=== PATIENT | male | born 1960 | race Caucasian/White ===

== ENCOUNTER → 2017-10-01 | Outpatient (REF) | payer BC | LOC: M LAB REF 09:26 | DX: C01 Malignant neoplasm of base of tongue (principal) | CPT/HCPCS: 88305 ==

== ENCOUNTER → 2017-10-03 | Outpatient (CLI) | payer BC ==
[~2017-10-03] MED LIST: PROHANCE 279.3MG/ML 15ML VIAL (A9576) As Ordered; PROHANCE 279.3MG/ML 5ML VIAL (A9576) As Ordered
== END ==
LOC: M RAD 08:46
DX: C01 Malignant neoplasm of base of tongue (principal); R93.0 Abnormal findings on diagnostic imaging of skull and head, not elsewhere classified
CPT/HCPCS: A9576

== ENCOUNTER 2017-10-08 08:40 | Day surgery (SDC) | payer BC ==
[2017-10-08] MEDS: LR 1,000 ML IV (09:45)
[2017-10-08] MEDS: LIDOCAINE W/EPINEPHRINE 1% 20ML VIAL As Ordered ×2 (10:36→11:40)
[2017-10-08] MEDS ORDERED: MIDAZOLAM INJ 2 MG/2 ML VIAL (J2250) As Ordered (10:46)
[2017-10-08] MEDS ORDERED: ROCURONIUM BROMIDE 50 MG/5 ML VIAL As Ordered (10:46)
[2017-10-08] MEDS ORDERED: fentaNYL 250 MCG/5 ML INJECTION (J3010) As Ordered (10:46)
[2017-10-08] MEDS ORDERED: LIDOCAINE 2% INJ 100 MG/5 ML SDV (FOR ANES.) As Ordered (10:46)
[2017-10-08] MEDS ORDERED: dexameTHASONE 4 MG/ML 1ML VIAL (J1100) As Ordered (10:46)
[2017-10-08] MEDS ORDERED: ONDANSETRON 4MG/2ML VIAL (J2405) As Ordered (10:46)
[2017-10-08] MEDS ORDERED: PROPOFOL 200 MG/20 ML VIAL As Ordered (10:46)
[2017-10-08] MEDS: dexameTHASONE 4 MG/ML 1ML VIAL (J1100) IV (11:15)
[2017-10-08] MEDS ORDERED: SUCCINYLCHOLINE 100 MG/5 ML SYRINGE (J0330) As Ordered (11:26)
[2017-10-08] MEDS: OXYMETAZOLINE NASAL SPRAY (AFRIN) As Ordered (11:40)
[2017-10-08] MEDS: METHYLENE BLUE 0.5% (5MG/ML) 10 ML AMP (PROVAYBLUE)(Q9968 PER 1MG) As Ordered (11:40)
[2017-10-08] MEDS ORDERED: LR 1,000 ML IV ×2 (12:30)
[2017-10-08] MEDS ORDERED: fentaNYL 100 MCG/2 ML INJECTION (J3010) IV (12:30)
[2017-10-08] MEDS ORDERED: ONDANSETRON 4MG/2ML VIAL (J2405) IV (12:30)
[2017-10-08] MEDS ORDERED: PERCOCET 5MG/325MG TAB As Ordered (12:30)
[2017-10-08] MEDS: PERCOCET 5MG/325MG TAB PO ×2 (12:38→13:07)
== END 2017-10-08 13:55 | disposition home or self-care (01) ==
LOC: M SDC 08:40
DX: J38.1 Polyp of vocal cord and larynx (principal); C02.9 Malignant neoplasm of tongue, unspecified; M54.5 Low back pain; Z88.0 Allergy status to penicillin
CPT/HCPCS: 31535

== ENCOUNTER → 2017-10-16 | Outpatient (CLI) | payer BC | LOC: M ONCR 09:55 | DX: C02.9 Malignant neoplasm of tongue, unspecified (principal) | CPT/HCPCS: G0463 ==

== ENCOUNTER → 2017-10-22 | Outpatient (CLI) | payer BC | LOC: M PLARAD 10:23 | DX: C01 Malignant neoplasm of base of tongue (principal) | CPT/HCPCS: 78815 ==

== ENCOUNTER → 2017-10-24 | Outpatient (CLI) | payer BC ==
[~2017-10-24] MED LIST changes: +ISOVUE-370 76% 100ML VIAL (Q9967) As Ordered; -PROHANCE 279.3MG/ML 15ML VIAL (A9576) As Ordered; -PROHANCE 279.3MG/ML 5ML VIAL (A9576) As Ordered
== END ==
LOC: M RAD 13:36
DX: C01 Malignant neoplasm of base of tongue (principal)
CPT/HCPCS: Q9967

== ENCOUNTER → 2017-11-10 | Outpatient (CLI) | payer BC ==
[~2017-11-10] MED LIST changes: -ISOVUE-370 76% 100ML VIAL (Q9967) As Ordered; +LIDOCAINE 1% MDV 20ML VIAL As Ordered
== END ==
LOC: M RADPRO 08:33
DX: C76.0 Malignant neoplasm of head, face and neck (principal); C01 Malignant neoplasm of base of tongue; Z79.891 Long term (current) use of opiate analgesic; Z79.899 Other long term (current) drug therapy; Z88.0 Allergy status to penicillin
CPT/HCPCS: 38505

== ENCOUNTER 2017-11-12 07:05 | Day surgery (SDC) | payer BC ==
[2017-11-12] MEDS ORDERED: CEFUROXIME SODIUM 750 MG in D5W MINI-BAG PLUS 50 ML IV (07:30)
[2017-11-12] MEDS ORDERED: ROCURONIUM BROMIDE 50 MG/5 ML VIAL As Ordered (07:47)
[2017-11-12] MEDS ORDERED: PROPOFOL 200 MG/20 ML VIAL As Ordered (07:47)
[2017-11-12] MEDS ORDERED: fentaNYL 250 MCG/5 ML INJECTION (J3010) As Ordered (07:47)
[2017-11-12] MEDS ORDERED: LIDOCAINE 2% INJ 100 MG/5 ML SDV (FOR ANES.) As Ordered (07:47)
[2017-11-12] MEDS ORDERED: MIDAZOLAM INJ 2 MG/2 ML VIAL (J2250) As Ordered ×2 (07:48→09:32)
[2017-11-12] MEDS: LR 1,000 ML IV ×3 (08:01→18:40)
[2017-11-12] MEDS: PHENYLEPHRINE 0.5% NASAL SPRAY 15 ML As Ordered ×2 (08:56→09:21)
[2017-11-12] MEDS: dexameTHASONE 4 MG/ML 1ML VIAL (J1100) IV ×2 (09:58→18:41)
[2017-11-12] MEDS: CLINDAMYCIN 600 MG in APPROPRIATE DILUENT 1 EA IV ×3 (09:59→21:47)
[2017-11-12] MEDS: METHYLENE BLUE 0.5% (5MG/ML) 10 ML AMP (PROVAYBLUE)(Q9968 PER 1MG) As Ordered (10:01)
[2017-11-12] MEDS ORDERED: PHENYLephrine HCL 500 MCG/5 ML (100MCG/ML) SYRINGE (J2370) As Ordered (10:09)
[2017-11-12] MEDS: LIDOCAINE W/EPINEPHRINE 1% 20ML VIAL As Ordered ×2 (10:21)
[2017-11-12] MEDS ORDERED: ONDANSETRON 4MG/2ML VIAL (J2405) As Ordered (10:22)
[2017-11-12] MEDS ORDERED: GLYCOPYRROLATE INJ 0.2 MG/ML 2 ML VIAL As Ordered (10:22)
[2017-11-12] MEDS ORDERED: NEOSTIGMINE 10 MG/10 ML VIAL (J2710) As Ordered ×2 (10:22)
[2017-11-12] MEDS ORDERED: hydrALAZINE INJ 20 MG/ML VIAL As Ordered (12:29)
[2017-11-12] MEDS ORDERED: LABETALOL HCL 100 MG/20 ML VIAL As Ordered (12:33)
[2017-11-12] MEDS: LABETALOL HCL 100 MG/20 ML VIAL IV (12:41)
[2017-11-12] MEDS ORDERED: ONDANSETRON 4MG/2ML VIAL (J2405) IV (12:45)
[2017-11-12] MEDS ORDERED: METOCLOPRAMIDE INJ 10MG/2ML VIAL (J2765) IV (12:45)
[2017-11-12] MEDS: fentaNYL 100 MCG/2 ML INJECTION (J3010) IV ×4 (13:05→13:34)
[2017-11-12] MEDS ORDERED: MORPHINE 10 MG/ML 1ML VIAL (J2270) As Ordered (13:28)
[2017-11-12] MEDS: MORPHINE 10 MG/ML 1ML VIAL (J2270) IV ×3 (13:43→14:10)
[2017-11-12] MEDS: CHLORHEXIDINE ORAL RINSE 0.12%/15ML 120ML BOTTLE SSP ×2 (16:00→22:22)
[2017-11-12] MEDS: MORPHINE 4 MG/ML 1ML VIAL/SYRINGE (J2270) IV (17:13)
[2017-11-12] MEDS: ACETAMINOPH W/CODEINE #3 TAB UD PO (18:34)
[2017-11-12] MEDS: AMITRIPTYLINE 50 MG TAB PO (21:41)
[2017-11-12] MEDS: oxyCODONE 20 MG CR TAB PO (21:42)
[2017-11-13] MEDS: dexameTHASONE 4 MG/ML 1ML VIAL (J1100) IV ×2 (02:42→10:30)
[2017-11-13] MEDS: LR 1,000 ML IV (03:00)
[2017-11-13] MEDS: CLINDAMYCIN 600 MG in APPROPRIATE DILUENT 1 EA IV ×2 (05:00→10:29)
[2017-11-13] MEDS: CHLORHEXIDINE ORAL RINSE 0.12%/15ML 120ML BOTTLE SSP (08:04)
[2017-11-13] MEDS: OMEPRAZOLE 20 MG CAP PO (08:05)
[2017-11-13] MEDS: oxyCODONE 20 MG CR TAB PO (08:05)
[2017-11-13] MEDS: oxyCODONE 5MG TAB PO ×2 (10:29→14:45)
== END 2017-11-13 14:51 | disposition home or self-care (01) ==
LOC: M SDC 07:05 → M PCU 17:55
DX: C02.3 Malignant neoplasm of anterior two-thirds of tongue, part unspecified (principal); E66.9 Obesity, unspecified; Z68.37 Body mass index [BMI] 37.0-37.9, adult; F32.9 Major depressive disorder, single episode, unspecified; G89.29 Other chronic pain; Z88.0 Allergy status to penicillin
CPT/HCPCS: 41112

== ENCOUNTER → 2017-11-19 | Outpatient (CLI) | payer BC | LOC: M ONCR 10:41 | DX: C02.1 Malignant neoplasm of border of tongue (principal) | CPT/HCPCS: G0463 ==

== ENCOUNTER 2017-12-04 09:45 | Day surgery (SDC) | payer BC ==
[2017-12-04] MEDS ORDERED: MIDAZOLAM INJ 2 MG/2 ML VIAL (J2250) As Ordered (10:08)
[2017-12-04] MEDS ORDERED: fentaNYL 100 MCG/2 ML INJECTION (J3010) As Ordered ×2 (10:08→15:03)
[2017-12-04] MEDS ORDERED: ROCURONIUM BROMIDE 50 MG/5 ML VIAL As Ordered (10:10)
[2017-12-04] MEDS ORDERED: PROPOFOL 200 MG/20 ML VIAL As Ordered (10:10)
[2017-12-04] MEDS ORDERED: LIDOCAINE 2% INJ 100 MG/5 ML SDV (FOR ANES.) As Ordered (10:11)
[2017-12-04] MEDS: LR 1,000 ML IV ×3 (10:55→19:08)
[2017-12-04 11:09] LABS: BEDSIDE GLUCOSE 112 MG/DL (70-105)
[2017-12-04] MEDS ORDERED: CLINDAMYCIN 600 MG/50 ML PREMIX BAG As Ordered (11:37)
[2017-12-04] MEDS ORDERED: dexameTHASONE 4 MG/ML 1ML VIAL (J1100) As Ordered (11:38)
[2017-12-04] MEDS: LIDOCAINE W/EPINEPHRINE 1% 20ML VIAL As Ordered (12:01)
[2017-12-04] MEDS: dexameTHASONE 4 MG/ML 1ML VIAL (J1100) IV ×2 (12:15→20:40)
[2017-12-04] MEDS: CLINDAMYCIN 600 MG in APPROPRIATE DILUENT 1 EA IV ×2 (12:36→19:08)
[2017-12-04] MEDS ORDERED: ONDANSETRON 4MG/2ML VIAL (J2405) As Ordered (16:15)
[2017-12-04] MEDS: BACITRACIN OINT 30GM As Ordered (16:52)
[2017-12-04 17:37] LABS: BEDSIDE GLUCOSE 164 MG/DL (70-105)
[2017-12-04] MEDS ORDERED: PERCOCET 5MG/325MG TAB PO (17:45)
[2017-12-04] MEDS ORDERED: fentaNYL 100 MCG/2 ML INJECTION (J3010) IV (17:45)
[2017-12-04] MEDS ORDERED: MORPHINE 10 MG/ML 1ML VIAL (J2270) IV (17:45)
[2017-12-04] MEDS ORDERED: ONDANSETRON 4MG/2ML VIAL (J2405) IV ×2 (17:45→18:00)
[2017-12-04] MEDS ORDERED: oxyCODONE 5MG TAB PO (18:00)
[2017-12-04] MEDS ORDERED: MORPHINE 4 MG/ML 1ML VIAL/SYRINGE (J2270) IV (18:00)
[2017-12-04] MEDS ORDERED: oxyCODONE 20 MG CR TAB PO (18:00)
[2017-12-04] MEDS: oxyCODONE 20 MG CR TAB PO (20:40)
[2017-12-04] MEDS: BACITRACIN OINT 30GM TOP (20:59)
[2017-12-04] MEDS: AMITRIPTYLINE 50 MG TAB PO (21:00)
[2017-12-05] MEDS: CLINDAMYCIN 600 MG in APPROPRIATE DILUENT 1 EA IV ×2 (00:17→05:42)
[2017-12-05] MEDS: LR 1,000 ML IV (03:56)
[2017-12-05] MEDS: dexameTHASONE 4 MG/ML 1ML VIAL (J1100) IV (03:56)
[2017-12-05] MEDS: BACITRACIN OINT 30GM TOP (08:45)
[2017-12-05] MEDS: OMEPRAZOLE 20 MG CAP PO (08:45)
[2017-12-05] MEDS: oxyCODONE 20 MG CR TAB PO (08:46)
[2017-12-05 14:40] LABS: iSTAT CA++ 4.9 MG/DL (4.5-5.3)
== END 2017-12-05 11:27 | disposition home or self-care (01) ==
LOC: M SDC 09:45 → M ICU 18:28
DX: C02.9 Malignant neoplasm of tongue, unspecified (principal); C77.0 Secondary and unspecified malignant neoplasm of lymph nodes of head, face and neck; F32.9 Major depressive disorder, single episode, unspecified; E11.9 Type 2 diabetes mellitus without complications; M51.9 Unspecified thoracic, thoracolumbar and lumbosacral intervertebral disc disorder; G89.29 Other chronic pain; Z88.0 Allergy status to penicillin; Z79.899 Other long term (current) drug therapy; Z79.84 Long term (current) use of oral hypoglycemic drugs
CPT/HCPCS: 38724

== ENCOUNTER 2017-12-29 13:53 | Outpatient (RCR) | payer BC ==
[2017-12-29 15:02] LABS: HEMATOCRIT 39.5 % (42.0-52.0); HEMOGLOBIN 13.5 g/dl (13.5-17.5); MEAN CORPUSCULAR HEMOGLOBIN 29.5 pg (27.0-33.0); MEAN CORPUSCULAR HGB CONC 34.2 g/dl (32.0-36.5); MEAN CORPUSCULAR VOLUME 86.2 fl (80.0-96.0); PLATELET COUNT, AUTOMATED 313 10^3/uL (150-450); RED BLOOD COUNT 4.58 10^6/uL (4.30-6.10); WHITE BLOOD COUNT 6.2 10^3/uL (4.0-10.0)
== END 2018-01-20 ==
LOC: M ONCR 13:53 → M RAD 01-02 14:00
DX: Z51.89 Encounter for other specified aftercare (principal); C02.1 Malignant neoplasm of border of tongue
CPT/HCPCS: 77334

== ENCOUNTER 2018-01-13 14:07 | Outpatient (RCR) | payer BC | END 2018-01-20 | LOC: M ONCR 14:07 | DX: C02.1 Malignant neoplasm of border of tongue (principal) | CPT/HCPCS: 77300 ==

== ENCOUNTER 2018-01-21 10:11 | Outpatient (RCR) | payer BC | END 2018-02-20 | LOC: M ONCR 10:11 | DX: C02.1 Malignant neoplasm of border of tongue (principal) | CPT/HCPCS: 77336 ==

== ENCOUNTER 2018-02-24 08:38 | Outpatient (RCR) | payer BC | END 2018-03-22 | LOC: M ONCR 08:38 | DX: C02.1 Malignant neoplasm of border of tongue (principal) | CPT/HCPCS: 77300 ==

== ENCOUNTER → 2018-04-08 | Outpatient (CLI) | payer BC ==
[~2018-04-08] MED LIST changes: +AMIT100TA PO; +BACIPOW8 XX; +CLEO300C2 PO; +CLIN150C14 PO; +LIDO1SOL7 PO; -LIDOCAINE 1% MDV 20ML VIAL As Ordered; +METF500T4 PO; +NYST50SS SS; +OMEP10CASR PO; +OXYC-517 PO; +OXYC20TA40; +PERI12LIQ SSP; +SILV40CR EXT; +chlorhexidine SSP
--- NOTE | 2018-04-09 15:10 | RADONC ---
RADIATION ONCOLOGY FOLLOWUP NOTE DATE: 04/08/2018 CHART NUMBER: [id number] DIAGNOSIS: Oral tongue cancer. STAGE: Stage III, T2N1M0. ECOG PERFORMANCE STATUS: 0. FOLLOWUP NOTE: Mr. 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 The patient presents today reporting that generally he is doing well. He is able to eat and still does not have a feeding tube. The patient's review of systems is noncontributory except for two unhealed skin areas over the left shoulder. Denies nausea, vomiting, fevers, chills, night sweats, diplopia, headaches, anxiety or depression, anorexia, weight loss, visual disturbances, chest pain, urinary or bowel difficulties, bone pain, or neurological problems. PHYSICAL EXAMINATION The patient is a well-developed, well-nourished white male in no acute distress. HEENT: Exam is normocephalic, atraumatic. Extraocular movements are intact. Examination of the patient's oral cavity does not reveal any evidence of recurrent disease. There is no palpable preauricular, cervical, supraclavicular, infraclavicular or axillary lymphadenopathy present. His lungs are clear to auscultation and percussion. They are two small unhealed areas present still over the patient's left neck. ASSESSMENT: 1. The patient is clinically doing well at this point. He is being seen by Dr. Garcia every 4 weeks for routine followup. In light of this, I have set up a followup in our office in six months' time. cc: MD Ez Bull MD
== END ==
LOC: M ONCR 13:25
PROVIDERS: ATTEND Radiology Radiation Oncology
DX: C02.1 Malignant neoplasm of border of tongue (principal)

== ENCOUNTER → 2018-05-19 | Outpatient (CLI) | payer BC | LOC: M PLARAD 12:41 | DX: C02.9 Malignant neoplasm of tongue, unspecified (principal) | CPT/HCPCS: 78815 ==

== ENCOUNTER → 2018-06-09 | Outpatient (CLI) | payer BC ==
[~2018-06-09] MED LIST changes: +LIDOCAINE 1% MDV 20ML VIAL As Ordered ONE
--- NOTE | 2018-06-09 17:18 | REP ---
ULTRASOUND-GUIDED LEFT CERVICAL LYMPH NODE BIOPSY The procedure was performed under the direct supervision of Dr. Rangel. The risks and benefits of the procedure were explained to the patient and informed consent was obtained. The left cervical lymph node was localized using ultrasound guidance. The skin was prepped and draped in a sterile fashion. 1% lidocaine was used as a local anesthetic. Using ultrasound guidance six fine-needle aspirations were obtained using 25 gauge needles. All samples were sent to lab for analysis. The patient tolerated the procedure well and there were no immediate complications. After the appropriate amount of monitored convalescence the patient was discharged from the department. Reviewed by LEN Wynne 06/09/2018 04:45 P Electronically Signed by Kobe Rangel MD 06/09/2018 05:08 P
== END ==
LOC: M RADPRO 12:57
PROVIDERS: ATTEND Otolaryngology
DX: C01 Malignant neoplasm of base of tongue (principal); C77.0 Secondary and unspecified malignant neoplasm of lymph nodes of head, face and neck; Z79.84 Long term (current) use of oral hypoglycemic drugs; Z79.899 Other long term (current) drug therapy; Z88.0 Allergy status to penicillin

== ENCOUNTER → 2018-07-16 | Outpatient (CLI) | payer BC ==
[~2018-07-16] MED LIST changes: +DULO1CAP2 PO; +FLUC10TA PO; +GABA-843 PO; +ISOVUE-370 76% 100ML VIAL (Q9967) As Ordered ONE; -LIDOCAINE 1% MDV 20ML VIAL As Ordered ONE; +METF-723 PO
--- NOTE | 2018-07-16 22:37 | REP ---
Clinical: Recurrent squamous cell cancer of the tongue. Technique: Axial contrast enhanced images from the thoracic inlet to the upper abdomen with coronal and sagittal re-formations using 100 ml Isovue 370 intravenous contrast material. Comparison: None. Findings: Mild scattered bilateral fibroatelectatic changes are suggested including a small area of focal scarring in the subpleural lateral segment right middle lobe (images 56-59). A single 3 mm noncalcified nodule is identified in the posterior left apex (image 27). No further consolidation, significant nodule or mass lesion appreciated. No pleural effusion. No pneumothorax. No obvious axillary, hilar, or mediastinal adenopathy. Mediastinum demonstrates normal thoracic aorta and pulmonary vasculature. Atherosclerotic changes to the coronary arteries noted without cardiomegaly or pericardial effusion. Musculoskeletal structures without focal osseous abnormality. Impression: 1. A single 3 mm noncalcified nodules identified in the posterior left apex which is otherwise nonspecific. Three to 6 month follow-up examination may be warranted. 2. Minimal scattered scarring and fibroatelectatic changes without further acute mediastinal or pleuroparenchymal process appreciated. Electronically Signed by Filiberto Haddad MD 07/16/2018 10:29 P
--- NOTE | 2018-07-17 09:06 | REP ---
CT NECK WITH CONTRAST: HISTORY: Squamous cell carcinoma of the tongue. CONTRAST: Isovue 370, 100 mL. COMPARISON: 10/24/2017 An ill-defined mass is present in the left tongue base. The mass is increased in size. There is superior extension into the left tonsil. There is posterior extension into the left lateral wall of the oropharynx and inferior extension into the anterior and left lateral wall of the hypopharynx. There is effacement of the left vallecula with mild mass effect on the hypopharynx. A soft tissue mass is present posterior to and contiguous with the left parotid gland. There is inferior extension in the left lateral neck in the left carotid space and posterior triangle with encasement of the left sternocleidomastoid levator scapulae, platysma and strap muscles. There is anterior extension into the left submandibular space with partial incasement of the left submandibular gland. There is encasement of the distal left common carotid artery and the proximal left internal and external carotid arteries. The nasopharynx, larynx and subglottic trachea are normal in appearance. There is thickening of the epiglottis and aryepiglottic folds. Increased density is present in the retropharyngeal space. Straightening is present in the anterior subcutaneous tissues. These findings are consistent with post radiation change. A lymph node mass 2.4 cm in width is present in the left subclavicular area at the level of the thyroid gland. Atherosclerotic calcification is present at the carotid bifurcations. Degenerative change is present in the cervical spine. The lung apices are clear. The visualized sinuses are clear. IMPRESSION: 1. There is an ill-defined soft tissue mass in the left tongue base that is increased in size compared to the previous study. There is mild mass effect o the hypopharynx. 2. There is a large left subcutaneous soft tissue mass in the left carotid space and posterior triangle extending from the level of the parotid gland to the thyroid gland with encasement of left-side musculature as described above. Electronically Signed by Van Chiang MD 07/17/2018 09:17 A
== END ==
LOC: M RAD 17:11
PROVIDERS: ATTEND Internal Medicine Medical Oncology
DX: C01 Malignant neoplasm of base of tongue (principal); I65.23 Occlusion and stenosis of bilateral carotid arteries; R22.1 Localized swelling, mass and lump, neck
CPT/HCPCS: 70491; 71260; Q9967

== ENCOUNTER → 2018-07-28 | Outpatient (CLI) | payer BC ==
[~2018-07-28] MED LIST changes: -ISOVUE-370 76% 100ML VIAL (Q9967) As Ordered ONE; +ONDA8TAB7 PO; +PROC10TA4 PO
--- NOTE | 2018-07-29 01:49 | REP ---
Clinical: Preoperative assessment . Comparison: 11/12/2017 . Technique: PA and lateral. Findings: The mediastinum and cardiac silhouette are normal. The lung ward are clear and without acute consolidation, effusion, or pneumothorax. The skeletal structures are intact and normal. Impression: 1. No acute cardiopulmonary process. Electronically Signed by Filiberto Haddad MD 07/29/2018 01:41 A
== END ==
LOC: M SMT 10:08
PROVIDERS: ATTEND Thoracic Surgery (Cardiothoracic Vascular Surgery)
DX: Z01.818 Encounter for other preprocedural examination (principal)

== ENCOUNTER 2018-07-29 07:37 | Day surgery (SDC) | payer BC ==
[~2018-07-29] VITALS: Ht 165.1 cm; Wt 74.8 kg
[~2018-07-29 07:37] MED LIST changes: +LIDOCAINE 1% MDV 20ML VIAL SQ PRN; +LIDOCAINE 2% INJ 100 MG/5 ML SDV (FOR ANES.) As Ordered ONE; +MIDAZOLAM INJ 2 MG/2 ML VIAL (J2250) As Ordered ONE; -ONDA8TAB7 PO; +ONDANSETRON 4MG/2ML VIAL (J2405) As Ordered ONE; -PROC10TA4 PO; +PROPOFOL 200 MG/20 ML VIAL As Ordered ONE; +fentaNYL 100 MCG/2 ML INJECTION (J3010) As Ordered ONE
[2018-07-29] MEDS: LR 1,000 ML IV ONE (07:45)
[2018-07-29] MEDS: VANCOMYCIN HCL 1,000 MG, VIAL MATE ADAPTER 1 EACH in D5W 250 ML IV ONE (08:36)
[2018-07-29] MEDS: LIDOCAINE 1% SDV INJ 30 ML VIAL As Ordered ONE ×2 (09:16→10:00)
[2018-07-29] MEDS: BUPIVACAINE HCL 0.25% 30 ML VIAL As Ordered ONE (09:16)
[2018-07-29] MEDS: MUPIROCIN 2% OINT 22 GM TUBE TOP ONE (09:50)
[2018-07-29] MEDS: HEPARIN SOD (PORCINE) 5000 UNITS/ML VIAL As Ordered ONE (10:00)
[2018-07-29] MEDS: LIDOCAINE 2% MDV 20 ML VIAL As Ordered ONE (10:00)
[2018-07-29] MEDS ORDERED: LABETALOL HCL 100 MG/20 ML VIAL As Ordered ONE (10:01)
[2018-07-29] MEDS ORDERED: PROPOFOL 200 MG/20 ML VIAL As Ordered ONE (10:04)
[2018-07-29] MEDS ORDERED: GLYCOPYRROLATE INJ 0.2 MG/ML 2 ML VIAL As Ordered ONE (10:11)
[2018-07-29] MEDS: BUPIVACAINE LIPOSOME/PF 1.3% 20ML VIAL (13.3MG/ML)(EXPAREL)(C9290 PER1MG) As Ordered ONE (10:22)
--- NOTE | 2018-07-29 11:12 | REP ---
Limited chest x-ray: Two views. History: [id number] placement. 12 seconds of fluoroscopy time is reported. Findings: A sequence of two last image hold fluoroscopically obtained spot radiographs of the chest document left subclavian Vihiez-I-Htck position. Electronically Signed by Kobe Rangel MD 07/29/2018 06:51 P
[2018-07-29 11:40] VITALS: BP 124/69
--- NOTE | 2018-07-30 03:48 | REP ---
Clinical: Port placement . Comparison: 07/28/2018 . Findings: [id number]-[id number] overlies the left upper chest wall with catheter tip in the right atrium. The mediastinum and cardiac silhouette are stable and within normal limits for portable technique. The lung ward are clear without acute consolidation, effusion, or pneumothorax. Skeletal structures are intact. Impression: No acute cardiopulmonary process appreciated. Electronically Signed by Filiberto Haddad MD 07/30/2018 03:39 A
--- NOTE | 2018-07-30 08:32 | RO ---
DATE OF PROCEDURE: 07/29/2018 PROCEDURE DIAGNOSIS: Head and neck cancer and need for chemotherapy and vascular access. POSTPROCEDURE DIAGNOSIS: Head and neck cancer and need for chemotherapy and vascular access. PROCEDURE: Placement of a left subclavian vein PowerPort for fluoroscopic control. SURGEON: Geovanni Stout MD LEAD PASTOR: ANESTHESIA: FINDINGS: All contours were smooth and the catheter was placed be entering the superior vena cava (SVC). DESCRIPTION OF PROCEDURE: Under satisfactory moderate sedation, patient was prepped and draped in usual sterile fashion. Subclavian fossa was infiltrated with 1% lidocaine and the subclavian vein was found on the first pass. Wire was placed without difficulty and its position confirmed with fluoroscopy. An incision approximately 2 cm below the wire insertion was made after infiltrating with Exparel. A subcutaneous pocket was created by use of both electrocautery and blunt dissection. Hemostasis was achieved by use of electrocautery. The tract was incised and dilated, and a Peel-Away introducer placed. The catheter was placed low numbers down into the right atrium. A tunnel was created between the catheter site and the port site and the catheter pulled through under fluoroscopic control to the above position. Catheter was cut to an appropriate length. Collar was placed and Infusaport connected to the catheter. The port was then secured to the chest wall with two #2-0 silk sutures. The port was flushed with heparinized saline and then flushed again with a final concentration of heparin of 100 units/mL. Port aspirated and flushed well. Final pictures were taken to ensure good placement and all contours were smooth. The subcutaneous tissue was closed with running #3-0 Vicryl suture, and the skin was closed with running #4-0 Monocryl subcuticular suture. Patient tolerated procedure well, and left the operating room in satisfactory condition for the recovery room.
== END 2018-07-29 11:50 | disposition home or self-care (01) ==
LOC: M SDC 07:37
PROVIDERS: ATTEND Thoracic Surgery (Cardiothoracic Vascular Surgery)
DX: C01 Malignant neoplasm of base of tongue (principal); C77.0 Secondary and unspecified malignant neoplasm of lymph nodes of head, face and neck; B37.0 Candidal stomatitis; R13.10 Dysphagia, unspecified; E11.9 Type 2 diabetes mellitus without complications; M54.9 Dorsalgia, unspecified; J38.1 Polyp of vocal cord and larynx; Z88.0 Allergy status to penicillin; Z79.899 Other long term (current) drug therapy; Z79.84 Long term (current) use of oral hypoglycemic drugs
CPT/HCPCS: 36561; 71045; 76000; C1788; C9290; J2250; J2405; J3010; J3370

== ENCOUNTER → 2018-08-11 | Outpatient (CLI) | payer BC ==
[~2018-08-11] MED LIST changes: -LIDOCAINE 1% MDV 20ML VIAL SQ PRN; -LIDOCAINE 2% INJ 100 MG/5 ML SDV (FOR ANES.) As Ordered ONE; -MIDAZOLAM INJ 2 MG/2 ML VIAL (J2250) As Ordered ONE; +ONDA8TAB7 PO; -ONDANSETRON 4MG/2ML VIAL (J2405) As Ordered ONE; +PROC10TA4 PO; -PROPOFOL 200 MG/20 ML VIAL As Ordered ONE; -fentaNYL 100 MCG/2 ML INJECTION (J3010) As Ordered ONE
--- NOTE | 2018-08-12 04:14 | REP ---
Clinical: COPD . Comparison: 07/28/2018 . Technique: PA and lateral. Findings: The mediastinum and cardiac silhouette are normal. Vduqzj-L-Fwek identified with tip in the SVC. The lung ward demonstrate chronic interstitial changes without acute consolidation, effusion, or pneumothorax. The skeletal structures are intact and normal. Impression: 1. No acute cardiopulmonary process. Electronically Signed by Filiberto Haddad MD 08/12/2018 04:07 A
== END ==
LOC: M SMT 11:06
PROVIDERS: ATTEND Thoracic Surgery (Cardiothoracic Vascular Surgery)
DX: Z01.818 Encounter for other preprocedural examination (principal); J44.9 Chronic obstructive pulmonary disease, unspecified

== ENCOUNTER → 2018-08-28 | Outpatient (CLI) | payer BC ==
[~2018-08-28] MED LIST changes: +DULO1CAP3 PO; +FENT10PA TOP; +FENT12PA TOP; +ISOVUE-370 76% 100ML VIAL (Q9967) As Ordered ONE; +LEVA250T13 PO; +OXYC10TA12 PO
--- NOTE | 2018-08-28 15:02 | REP ---
Soft-tissue neck CT study with IV contrast: History: Recurrent squamous cell carcinoma of the neck. CT contrast dose: 75 mL of intravenous Isovue 370. Comparison CT study is from July 16, 2018. CT findings: There is heterogeneous enhancing fullness along the left posterior tongue. This is somewhat ill-defined but appears to measure up to 2.5 cm. There is heterogeneous enhancing and confluent abnormal soft tissue in the left neck deep to the sternocleidomastoid muscle. This appears more prominent than on July 16, 2018. Chronic leonardo mass deep to the sternocleidomastoid muscle at the level of the mandibular angle measuring 2.2 cm in diameter. This is more prominent than previously. Posterolateral to the left thyroid gland, there is a similar low density peripherally enhancing lesion which measures 2.6 cm in greatest transverse dimension, previously 2.4 cm. Its AP dimension is 2.2 cm today, previously 2.0 cm. There are a few normal-sized stable lymph nodes in the right neck unchanged. No bony destructive lesion is appreciated. There is a polypoid filling defect along the anterior wall of the trachea today as a new finding. This could be mucoid material although I cannot exclude a neoplastic tracheal polyp. It measures 8 mm. A small stable left thyroid nodule. A left subclavian Jeavqg-D-Aocq catheter is seen. Impression: There is evidence of progressive involvement of the soft tissues of the left neck and the left posterior tongue. Possible 7 mm tracheal polyp versus mucoid material. Electronically Signed by Kobe Rangel MD 08/28/2018 06:49 P
== END ==
LOC: M RAD 13:21
PROVIDERS: ATTEND Internal Medicine Medical Oncology
DX: M54.2 Cervicalgia (principal); C76.0 Malignant neoplasm of head, face and neck
CPT/HCPCS: 70491; Q9967

== ENCOUNTER → 2018-08-31 | Outpatient (CLI) | payer BC ==
[~2018-08-31] MED LIST changes: +EMLA CREAM 5GM (LIDOCAINE/PRILOCAINE) As Ordered ONE
--- NOTE | 2018-08-31 16:09 | REP ---
CT Head without and with contrast HISTORY: Syncope CONTRAST: Isovue 370 75 ml COMPARISON: None Areas of decreased attenuation are present in the basal ganglia. These represent old lacunar infarctions. There is no intraparenchymal hemorrhage, acute infarct, mass or midline shift. There is no abnormal enhancement. The ventricular system is normal in appearance. There is no extra cerebral collection. Mucosal thickening is present in the left ethmoid sinus. Impression: Old bilateral basal ganglia lacunar infarctions. Electronically Signed by aVn Chiang MD 08/31/2018 04:01 P
== END ==
LOC: M RAD 15:07
PROVIDERS: ATTEND Nurse Practitioner Family
DX: R55 Syncope and collapse (principal); Z85.810 Personal history of malignant neoplasm of tongue
CPT/HCPCS: 70470; Q9967

== ENCOUNTER → 2018-09-04 | Outpatient (CLI) | payer BC ==
[~2018-09-04] MED LIST changes: -EMLA CREAM 5GM (LIDOCAINE/PRILOCAINE) As Ordered ONE; -ISOVUE-370 76% 100ML VIAL (Q9967) As Ordered ONE; +ISOVUE-370 76% 125ML VIAL (Q9967 PER ML) As Ordered ONE
--- NOTE | 2018-09-04 09:31 | REP ---
CT NECK WITH CONTRAST: HISTORY: Oropharyngeal carcinoma. CONTRAST: Isovue-370, 75 mL. COMPARISON: 08/28/2018 An ill-defined enhancing mass is present in the left tongue base. There is minimal mass effect on the oropharynx. This appears unchanged compared to the previous study. An enlarged lymph node mass 2.2 cm in width is present in the left posterior triangle at the level of the level of the bal and hypopharynx. This appears unchanged compared to the previous study. An enhancing mass is present in the left subcutaneous tissue involving the left sternocleidomastoid and platysma muscles and left carotid space. This extends from the body of the mandible inferior to the thyroid gland. This is unchanged compared to the previous study. An enlarged lymph node mass 2.6 cm in width is present in the left supraclavicular area at the level of the thyroid gland. This is unchanged compared to the previous study. The nasopharynx, larynx, and subglottic trachea are normal in appearance. Increased density is present in the preepiglottic space and retropharyngeal space. There is thickening of the epiglottis. Stranding is present in the superficial subcutaneous tissue. These findings are consistent with post radiation change. Atherosclerotic calcification is present at the carotid bifurcations. Degenerative change is present in the cervical spine. The lung apices are clear. Minimal mucosal thickening is present in the left ethmoid sinus. IMPRESSION:There has been no change in size of the left tongue base and left neck mass and adenopathy compared to the previous study. Electronically Signed by Van Chiang MD 09/04/2018 09:37 A
== END ==
LOC: M RAD 07:32
PROVIDERS: ATTEND Internal Medicine Medical Oncology
DX: C10.9 Malignant neoplasm of oropharynx, unspecified (principal); M50.30 Other cervical disc degeneration, unspecified cervical region; R59.0 Localized enlarged lymph nodes
CPT/HCPCS: 70491; Q9967

== ENCOUNTER 2018-09-10 06:37 | Day surgery (SDC) | payer BC ==
[~2018-09-10] VITALS: Ht 165.1 cm; Wt 69.4 kg
[~2018-09-10 06:37] MED LIST changes: -ISOVUE-370 76% 125ML VIAL (Q9967 PER ML) As Ordered ONE
[2018-09-10] MEDS ORDERED: PROPOFOL 200 MG/20 ML VIAL As Ordered ONE (06:55)
[2018-09-10] MEDS ORDERED: LIDOCAINE 2% INJ 100 MG/5 ML SDV (FOR ANES.) As Ordered ONE (06:55)
[2018-09-10] MEDS ORDERED: NS 1,000 ML IV ONE (07:00)
[2018-09-10] MEDS ORDERED: fentaNYL 100 MCG/2 ML INJECTION (J3010) As Ordered ONE (07:28)
[2018-09-10] MEDS ORDERED: SODIUM CHLORIDE 0.9% INJ 10 ML SYR IV PRN (08:45)
[2018-09-10] MEDS ORDERED: SODIUM CHLORIDE 0.9% INJ 10 ML SYR IV SCH (09:00)
[2018-09-10] MEDS ORDERED: NORCO, ANEXSIA 5/325MG TABLET (HYDROcodone/ACETAMINOPHEN) As Ordered ONE (09:06)
[2018-09-10] MEDS ORDERED: NORCO, ANEXSIA 5/325MG TABLET (HYDROcodone/ACETAMINOPHEN) PO ONE (09:15)
[2018-09-10 09:29] VITALS: BP 157/86
--- NOTE | 2018-09-10 16:20 | RO ---
DATE OF PROCEDURE: 09/10/2018 PREOPERATIVE DIAGNOSIS: Tongue cancer. POSTOPERATIVE DIAGNOSIS: Tongue cancer. PROCEDURE: Esophagogastrostomy with percutaneous endoscopic gastrostomy tube placement. SURGEON: Dr. Wilson BEARING PRESS MACHINE OPERATOR: None. ANESTHESIA: Intravenous (IV) sedation with 5 mL of 1% lidocaine local. COMPLICATIONS: None. ESTIMATED BLOOD LOSS (EBL): 2 mL. INDICATIONS FOR PROCEDURE: Patient is a 58-year-old male, presents with tongue cancer and he has been avoiding having a percutaneous endoscopic gastrostomy (PEG) tube placed but he has been having difficulty with swallowing lately due to pain. Recommendation was to proceed with PEG tube placement. Risks and benefits of procedure not limited but including bleeding, infection, perforation, damage to surrounding structure, need for further surgery. He understood and signed consent. DESCRIPTION OF PROCEDURE: Patient brought back to operating room #1 after sufficient sedation. The upper abdomen was prepped with chlorhexidine. Next, time-out was done to her confirm proper patient and proper procedure. Next, a gastroscope was passed through the esophagus down into the stomach. The stomach was insufflated and the lights were turned off in the room and I was able to transilluminate through the abdominal wall and palpate identifying a proper location for tube placement. Next, the local was injected into the skin followed by using an #11 blade scalpel to make a 5 mm incision. Following that the introducer needle was passed through the abdominal wall into the stomach. A guidewire was then passed through it and grabbed with a snare on the end of the scope and brought out through the mouth. The 20-Thai TOSHA tube was then passed over top of the guidewire, brought out through the abdominal wall. The tube was cut to length. A bumper was placed at about the 3 cm tiffanie. The scope was passed back inside to look at the stomach from the inside. There was no signs of any bleeding. The scope was then removed. The cap was placed on the end of the gastric tube. The area was cleaned, dried and dressing was placed, thus ending procedure.
[2018-09-15] MEDS ORDERED: FENT12DI8 TOP (14:47)
[2018-09-15] MEDS ORDERED: FENT100D25 TOP (14:47)
[2018-09-18] MEDS ORDERED: OXYC10TA12 PO (09:14)
== END 2018-09-10 09:35 | disposition home or self-care (01) ==
LOC: M OPP 06:37
PROVIDERS: ATTEND Surgery
DX: C02.9 Malignant neoplasm of tongue, unspecified (principal); E63.9 Nutritional deficiency, unspecified
CPT/HCPCS: 49440; J3010

== ENCOUNTER → 2018-11-27 | Outpatient (CLI) | payer BC ==
[~2018-11-27] MED LIST changes: +DOXY-350 PO; +DURA100D2 TOP; +DURA25DI3 TOP; +FENT100D25 TOP; +FENT12DI12 TOP; +FENT12DI8 TOP; -FENT12PA TOP; -LIDO1SOL7 PO; +LIDO1SOL8 PO; +PROHANCE 279.3MG/ML 15ML VIAL (A9576) As Ordered ONE
--- NOTE | 2018-11-28 08:19 | REP ---
MR BRAIN WITHOUT AND WITH CONTRAST: HISTORY: Head and neck carcinoma. CONTRAST: ProHance 12 mL. Areas of increased signal intensity on T2-weighted images are present in the basal ganglia. These represent old lacunar infarctions. Scattered punctate areas of increased signal intensity on T2-weighted images are present in the periventricular and subcortical white matter. This represents small vessel ischemic disease. There is no intraparenchymal hemorrhage, acute infarct, mass or midline shift. There is no abnormal enhancement. The ventricular system and cortical sulci are dilated consistent with minimal volume loss. There is no extracerebral collection. The visualized sinuses are clear. IMPRESSION: 1. Old bilateral basal ganglia lacunar infarctions. 2. Minimal small vessel ischemic disease. 3. Minimal volume loss. Electronically Signed by Van Chiang MD 11/28/2018 08:21 A
== END ==
LOC: M RAD 16:39
PROVIDERS: ATTEND Internal Medicine Medical Oncology
DX: I67.82 Cerebral ischemia (principal); G31.9 Degenerative disease of nervous system, unspecified; C77.0 Secondary and unspecified malignant neoplasm of lymph nodes of head, face and neck
CPT/HCPCS: 70553; A9576

== ENCOUNTER → 2019-01-07 | Outpatient (CLI) | payer BC ==
[~2019-01-07] MED LIST changes: +CLEO1GEL TOP; -DULO1CAP2 PO; -DULO1CAP3 PO; +DULO1CAP5 PO; +DULO1CAP6 PO; +ISOVUE-370 76% 100ML VIAL (Q9967) As Ordered ONE; +OXYC15TA76 PO; -PROHANCE 279.3MG/ML 15ML VIAL (A9576) As Ordered ONE
--- NOTE | 2019-01-07 14:24 | REP ---
SOFT-TISSUE NECK CT STUDY WITH IV CONTRAST: HISTORY: Recurrent head and neck cancer. Comparison study November 30, 2018. CT CONTRAST DOSE: 100 mL of intravenous Isovue 370. CT FINDINGS: Extensive infiltrative neoplastic disease is seen in the left neck. The left posterior tongue mass lesion measures approximate 2.8 cm today with some suggestion of more prominent mass effect. There is a heterogeneous infiltrative mass posterior and inferior to the left parotid gland, which appears a little more prominent on the prior study, 2.4 cm transverse dimension today versus 2.1 cm November 30, 2018. There is diffuse infiltration along the left neck in the subcutaneous soft tissues along the course of the platysma and sternocleidomastoid muscle extending from the body of the mandible to the level of the thyroid gland. This lesion appears essentially unchanged. An enlarged lymph node mass is present in the left supraclavicular region. This appears a little larger, 3.0 x 2.7 cm today, previously 2.8 x 2.0 cm. No new adenopathy is appreciated. No bony destructive changes are seen. IMPRESSION: Subtle increase in the size and thickness of the metastatic deposits in the interval since the last study November 30, 2018. Electronically Signed by Kobe Rangel MD 01/07/2019 07:22 P
--- NOTE | 2019-01-07 17:24 | REP ---
CT of the chest with IV contrast for restaging of metastatic adenocarcinoma. Comparison is 10/09/2018. The thoracic inlet on the left along the lateral margin of the thyroid left lobe there is a soft tissue mass maximally measuring 3.4 cm today. This measured 2.3 cm previously. This may be a leonardo mass. There is a small soft tissue nodule in the lateral aspect of the left thyroid gland measuring 9 mm, similar to the prior study. This could represent a thyroid nodule or could represent the adjacent mass impinging the thyroid. There is no mediastinal, hilar or axillary lymph node enlargement, as previously. There are no lung masses or nodules. There are no infiltrates or effusions. The thoracic aorta is unremarkable. The cardiac size is normal. There is no pericardial effusion. The The visualized upper abdomen. Whole contents are unremarkable and unchanged. There is a left subclavian Lsvelj-O-Uctr catheter, unchanged with the tip in the right atrium as previously. There are no lytic, blastic or destructive skeletal changes. Impression: The soft tissue mass at the thoracic inlet on the left along the lateral margin of the thyroid left lobe has increased in size. No other masses are identified at the thoracic inlet, mediastinum, ezequiel or axilla. The suspected nodule in the left thyroid lobe may be impingement from the adjacent mass. Otherwise, negative CT study of the chest. Electronically Signed by Javier Dixon MD 01/07/2019 05:15 P
== END ==
LOC: M RAD 12:13
PROVIDERS: ATTEND Internal Medicine Medical Oncology
DX: C01 Malignant neoplasm of base of tongue (principal); C02.1 Malignant neoplasm of border of tongue; C77.0 Secondary and unspecified malignant neoplasm of lymph nodes of head, face and neck
CPT/HCPCS: 70491; 71260; Q9967

== ENCOUNTER → 2019-02-17 | Outpatient (CLI) | payer BC ==
[~2019-02-17] MED LIST changes: +FENT50DI5 TD; +METH5TA PO
--- NOTE | 2019-02-17 18:19 | REPVR ---
EXAM: CT Chest With Contrast EXAM DATE/TIME: 02/17/2019 5:40 PM CLINICAL HISTORY: 58 years old, male; Condition or disease; Other: CA; Additional info: Restaging head/neck CA TECHNIQUE: Imaging protocol: Computed tomography of the chest with intravenous contrast. Radiation optimization: All CT scans at this facility use at least one of these dose optimization techniques: automated exposure control; mA and/or kV adjustment per patient size (includes targeted exams where dose is matched to clinical indication); or iterative reconstruction. Contrast material: ISOVUE 370; Contrast volume: 100 ml; Contrast route: IV; COMPARISON: CT Chest with contrast 01/07/2019 1:10 PM FINDINGS: Tubes, catheters and devices: Percutaneous gastrostomy tube in place in the stomach. Central venous access port in place in the left chest wall, with tip near the cavoatrial junction. Thyroid: Incidental sub-1.5 cm left thyroid nodule. No imaging follow-up indicated per ACR guidelines. Lungs: Left lower lobe atelectasis. No focal infiltrate, consolidation, or mass. Pleural space: No pneumothorax. No pleural effusion. Heart: No cardiomegaly. No pericardial effusion. Aorta: No thoracic aortic aneurysm. Lymph nodes: Medial left supraclavicular probable lymph node metastasis near the thoracic inlet now measures 5.0 x 3.2 cm (previously 3.0 x 2.7 cm). Bones/joints: No acute fracture. Normal alignment. Degenerative changes in the spine. Soft tissues: Unremarkable. IMPRESSION: 1. Interval increase in size of left supraclavicular probable metastatic lymph node. 2. Nonacute/incidental findings above. COMMENT: In patients aged 35 years and older with an incidental thyroid nodule equal to or greater than 1.[address], MRI or extrathyroidal US, further evaluation with dedicated thyroid US is recommended for patients with normal life expectancy and without comorbidities. For smaller nodules without suspicious features, no further evaluation or follow up is recommended. Electronically signed by: Alexis Butcher On 02/17/2019 18:19:07 PM
--- NOTE | 2019-02-17 18:24 | REPVR ---
EXAM: CT Neck With Contrast EXAM DATE/TIME: 02/17/2019 5:40 PM CLINICAL HISTORY: 58 years old, male; Condition or disease; Cancer; Laryngeal; Additional info: Restaging head/neck CA TECHNIQUE: Imaging protocol: Computed tomography images of the neck with intravenous contrast. Radiation optimization: All CT scans at this facility use at least one of these dose optimization techniques: automated exposure control; mA and/or kV adjustment per patient size (includes targeted exams where dose is matched to clinical indication); or iterative reconstruction. Contrast material: ISOVUE 370; Contrast volume: 100 ml; Contrast route: IV; COMPARISON: CT Neck with contrast 01/07/2019 1:10 PM FINDINGS: Nasopharynx: Normal. Oropharynx: Normal. No significant tonsillar enlargement. Hypopharynx: Normal. Larynx: Normal. Normal epiglottis. Retropharyngeal space: Normal. Submandibular/Parotid glands: Normal. Glands are normal in size. Thyroid: Incidental sub-1.5 cm left thyroid nodule. No imaging follow-up indicated per ACR guidelines. Lymph nodes: Left supraclavicular probable lymph node metastasis measuring 5.1 x 3.4 cm (previously 3.0 x 2.7 cm). Enlarged, necrotic left anterior and posterior cervical lymph nodes measuring up to approximately 4.0 x 2.7 cm (previously 3.4 x 2.6 cm when measured in the same way). Trachea: Visualized trachea is unremarkable. Lungs: Normal as visualized. Dental: Dental disease noted. Bones/joints: No acute fracture. Normal alignment. Degenerative changes in the spine. Soft tissues: Post surgical changes in the left neck. Areas of induration/tumor infiltration in the left neck soft tissues are somewhat more extensive than on the prior study, now with probable involvement of the retropharyngeal space (for example series 201, image 52). IMPRESSION: 1. Increased left cervical and left supraclavicular lymphatic metastases. 2. Progression of more infiltrative appearing soft tissue tumor deposits in the left neck, now probably involving the retropharyngeal space. 3. Nonacute/incidental findings above. COMMENT: In patients aged 35 years and older with an incidental thyroid nodule equal to or greater than 1.[address], MRI or extrathyroidal US, further evaluation with dedicated thyroid US is recommended for patients with normal life expectancy and without comorbidities. For smaller nodules without suspicious features, no further evaluation or follow up is recommended. Electronically signed by: Alexis Butcher On 02/17/2019 18:23:43 PM
== END ==
LOC: M RAD 16:43
PROVIDERS: ATTEND Nurse Practitioner Family
DX: C76.0 Malignant neoplasm of head, face and neck (principal)
CPT/HCPCS: 70491; 71260; Q9967

== ENCOUNTER 2019-02-24 15:05 | Outpatient (RCR) | payer BC ==
[2018-07-13 09:57] VITALS: BP 115/68
[2018-07-13 11:11] LABS: HEMATOCRIT 34.9 % (42.0-52.0); HEMOGLOBIN 11.5 g/dl (13.5-17.5); MEAN CORPUSCULAR HEMOGLOBIN 30.6 pg (27.0-33.0); MEAN CORPUSCULAR VOLUME 92.8 fl (80.0-96.0); NEUTROPHILS # 4.4 10^3/uL (1.8-7.7); NEUTROPHILS % 82.7 % (36.0-66.0); RED BLOOD COUNT 3.76 10^6/uL (4.30-6.10); WHITE BLOOD COUNT 5.3 10^3/uL (4.0-10.0)
[2018-07-13 11:32] LABS: ALBUMIN 4.2 GM/DL (3.5-5.2); BLOOD UREA NITROGEN 17 MG/DL (6-20); CARBON DIOXIDE LEVEL 30 MEQ/L (23-31); CHLORIDE LEVEL 95 MMOL/L (98-107); CREATININE FOR GFR 1.06 MG/DL (0.90-1.30); GLOMERULAR FILTRATION RATE > 60.0 (>56); GLUCOSE, FASTING 104 MG/DL (70-105); POTASSIUM SERUM 4.3 MMOL/L (3.5-5.1); SODIUM LEVEL 133 MMOL/L (136-145); TOTAL PROTEIN 7.1 GM/DL (6.4-8.3)
--- NOTE | 2018-07-14 13:27 | MEDONC ---
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 NOW with localized disease recurrence detected on 05/19/2018 PET with a focus of hypermetabolic activity involving an 8 mm lymph node just below the glottis mildly hypermetabolic SUV 4.3, a change from prior. FNA biopsy 06/09/2018 positive for malignancy showing abundant highly atypical squamous cells with high nuclear to cytoplasm ratio consistent with recurrent squamous cell carcinoma TREATMENT HISTORY: Partial left glossectomy 11/12/2017 Left modified radical neck dissection 12/05/2017 - 4 cm leonardo mass, tumor, negative margins, no lymphovascular invasion, no extra leonardo extension. Perineural invasion was present. 07/13 nodes , level IIB no extranodal extension. - Case discussed in tumor board ; with patient preferences also taken into consideration, final consensus for adjuvant radiation avoiding systemic chemotherapy given excess toxicity in presence of only one high risk feature (PNI), low node burden, negative margins, no BENITO. Adjuvant radiation 6600 cGy 01/15/2018 - 03/09/2018. (Of note initial staging PET showed anorectal hypermetabolic focus thought ultimately to be of no clinical significance. . INTERVAL HISTORY: Lex is now we re-referred by Dr. Garcia after discovery of recurrent in field squamous cell carcinoma involving left upper neck. There is a shallow slightly ulcerated nonhealing lesion Lex says has been present since radiation. He was last seen here 12/09/2017 scheduled to return in 2 weeks, however, he did not and has been lost of medical oncology followup since. He did complete adjuvant radiation and was last seen in radiation oncology clinic in March. In April a PET/CT showed a hypermetabolic focus in the left upper posterior cervical area which on biopsy is positive for squamous cell carcinoma. Lex is here with his . He continues to follow in pain clinic for chronic back pain related to old work injury. He complains overall of not doing very well. His left upper neck and corner of jaw area is somewhat tender and painful. He is able to swallow though says he is coughing up some phlegm. He denies shortness of breath per se, hemoptysis, orthopnea, hematemesis, early satiety. REVIEW OF SYSTEMS: Pertinent positives and negatives noted above. Remainder of 12 system review negative. PHYSICAL EXAMINATION: Weight 78 kg (a 9 kg loss since January), temperature 97.3, blood pressure 115/68, heart rate 70, respiratory 20, O2 sat 93%. Patient is a normal weight middle aged man, somewhat unkempt and slightly ill appearing. Respiratory: Very distant breath sounds, no wheezes. Air movement intact and symmetric. No rales. Cardiac: S1-S2 regular rate and rhythm. No murmur. No gallop. Abdomen: Soft, nontender, nondistended, no mass or organomegaly. Extremities: No edema. Head and neck exam: Visible asymmetry involving the neck with bulky firm fixed postradiation change soft tissue and the left neck, upper cervical area an approximate 2 cm diameter shallow non-bleeding ulcerated lesion present below the ear in the upper cervical neck area just anterior to this the site of the a recent FNA biopsy has a small eschar. Right neck with no palpable adenopathy. No left or right supraclavicular adenopathy or axillary adenopathy. Oropharynx is notable for dry, crusted, cobbled, whitish film thick overlying the mid and posterior tongue surface, no tongue swelling. No pharyngeal swelling or erythema. No visible alveolar ulcers. No visible gingival purulence and no gingival tenderness. No buccal tenderness upper and lower. LABORATORY DATA: WBC 5.3, hemoglobin 11, hematocrit 34, platelets 252. Sodium 133. Remainder of electrolytes unremarkable. Liver functions normal. Albumin 4.2. IMPRESSION: Lex Schultz is a 58-year-old man now with local recurrence of oral squamous cell carcinoma, HPV negative originally diagnosed in November 2017 treated with left partial glossectomy left modified radical neck dissection adjuvant radiation completed February 2018. April 2018 PET with focus of hypermetabolic uptake suspicious for recurrence in the left upper cervical lymph node area and corresponding to an 8 mm lymph node which had doubled in size versus October 2017 PET. Biopsy of this area is positive for malignancy most consistent with squamous cell carcinoma recurrence. Lex's been referred to a surgeon in [place] likely for consideration of surgical salvage. He has not had a restaging neck CT or chest CT, I am ordering these today with contrast. He also has very significant thrush. He has been using nystatin oral rinse at home sparingly but not regularly. He is willing to try Flucon for a week to try to clear up this very severe thrush. He has lost significant weight 9 kg in 5 months, and reports difficulty with eating based on some soreness and discomfort in his neck. PLAN: 1. Flucon 100 mg daily for 7 days. 2. Chest and neck CT with contrast restage evaluate for evidence of distant metastatic foci and extent of disease in the neck. 3. Will followup the ENT surgeon evaluation from [place] trying to find out who the patient was referred to. 4. I would like to see Lex back after the scans, we can provide a CDs for him to take to the surgeon in [place]. I discussed with him in his today the treatment of recurrent squamous cell carcinoma of head and neck. This could be salvage surgery, salvage surgery followed by palliative chemotherapy for example combination chemotherapy. Other considerations would be single agent cetuximab, single agent immunotherapy, combination chemoimmunotherapy or chemomonoclonal antibody therapy. There are many possibilities depending on his performance status preferences and findings of restaging. TIME STATEMENT: 35 minutes spent face to face with the patient more than 50 % involved in discussion of recurrent head and neck cancer, its workup and treatment options noted above, and answering all of the patient's and his spouse's questions. Electronically Signed by Deanna Yoder MD 07/15/2018 09:07 A DD: Deanna Yoder MD 07/13/2018 02:46 P DT: norman 07/14/2018 11:26 A CC: MD Javier Bull MD John R. Leuenberger,
[2018-07-20 10:16] VITALS: BP 123/79
--- NOTE | 2018-07-20 14:12 | MEDONC ---
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 FNA biopsy 06/09/2018 positive for malignancy with abundant highly atypical squamous cells, high nuclear to cytoplasm ratio, consistent with recurrent squamous cell carcinoma. TREATMENT HISTORY: Please see 07/13/2018 note. INTERVAL HISTORY: Lex had neck and chest CTs on 07/16/2018. Chest CT showed a single 3 mm noncalcified nodule or two in the left apex, otherwise nonspecific, for which a 6-month interval followup was recommended, no other suspicious process. In the neck, an ill-defined mass in the left tongue base is present increased in size with superior extension into the left tonsil, posterior extension to the left lateral wall of the oropharynx, inferior extension into the anterior and left lateral wall of the hypopharynx. with effacement of the left vallecula and mass effect on hypopharynx. A soft tissue mass is present posterior to and contiguous with the left parotid gland with inferior extension into the left lateral neck and left carotid space as well as left submandibular space with partial encasement of the a submandibular gland. There is also encasement of the distal left common carotid artery, proximal left internal and external carotid arteries. Many changes seen involved thickening of nasopharynx, larynx, subglottic trachea, epiglottis, aryepiglottic folds consistent with post radiation. A 2.4 cm lymph node in the left subclavicular area at the level of the thyroid gland is also seen (notably not hypermetabolic on PET). Overall, an ill-defined left tongue base, soft tissue mass that has grown and a large left subcutaneous soft tissue left carotid space mass. I explained to Lex that these findings are consistent with local recurrence in a previously radiated field and the issue now in the absence of distant recurrence is whether surgical salvage is possible. He has an appointment with Dr. Erma Colon tomorrow at [facility]. The weather could interfere with this and I asked Cass Olivas our nurse practitioner to talk to the patient about helping him speed any reschedule. I talked with Lex and his about recurrent head and neck cancer and its typical treatment. If surgery is not offered or recommended by Dr. Colon, I would recommend systemic chemotherapy possibly with a three-drug regimen. Options for curative intent treatment in the event Lex has disease not amendable to surgery include concurrent chemoradiation. This would be reradiation with concurrent chemotherapy. Otherwise, nonsurgical approaches without concurrent chemoradiation would likely not be curative in intent, such as single or multidrug treatment. These options could include a cisplatin/5-FU combination or carboplatin/5-FU combination, a [place] plus Taxane, [place] plus pemetrexed. Resighini/5-FU/cetuximab, consideration of immunotherapy. Lex has not previously had any chemotherapy and therefore immunotherapy currently is still in the second line setting for recurrent head and neck cancer. IMPRESSION: Locally recurrent HPV negative oropharyngeal head and neck cancer involving the base of tongue mass and parotid mass with significant local extension 4 months after surgery and radiation completed February 2018, recurrence occurring in the radiated field within 4 months of completion of radiation previously. ECOG performance status 1. At the end of the visit, Lex brought up that his current pain regimen prescribed by Dr. Nina is "not doing it." He says he takes oxycodone up to five times a day and OxyContin several times a day. He does not appear to be in distress. The meeting today was fairly drawn out as I answered all of the patient and his 's questions, arranged for a CD of the images and connected them with the nurse navigator and outlined possible treatments other than surgery. I asked for Lex's patience as again he does not appear to be in distress as I reviewed the opioid prescribing history. PLAN: 1. Lex will see Dr. Colon tomorrow. 2. 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 3. Return to clinic morning to discuss Dr. Colon's recommendations and make any further planning needed. Will address chronic pain issues at that time. TIME STATEMENT: 35 MINUTES spent face to face with the patient more than 50% involved in counseling as detailed above. 07/21/18 ADDENDUM: Dr. Colon called while I was away from my desk we're playing phone tag I've requested a copy of his note be faxed. His cell [phone]; office [phone] Electronically Signed by Deanna Yoder MD 07/21/2018 12:52 P DD: Deanna Yoder MD 07/20/2018 11:15 A DT: red 07/20/2018 12:46 P CC: MD Ez Murcia MD
[2018-07-27 14:04] VITALS: BP 118/78
[2018-07-27 15:35] LABS: INR 1.09; PROTHROMBIN TIME 14.2 SECONDS (12.1-14.4)
[2018-07-27 15:36] LABS: PARTIAL THROMBOPLASTIN TIME 29.9 SECONDS (25.4-37.6)
[2018-08-03 13:29] VITALS: BP 117/73
[2018-08-03 13:33] LABS: HEMATOCRIT 34.5 % (42.0-52.0); HEMOGLOBIN 11.8 g/dl (13.5-17.5); LYMPH % 19.9 % (24.0-44.0); MEAN CORPUSCULAR HEMOGLOBIN 31.4 pg (27.0-33.0); MEAN CORPUSCULAR HGB CONC 34.2 g/dl (32.0-36.5); MEAN CORPUSCULAR VOLUME 91.7 fl (80.0-96.0); RED BLOOD COUNT 3.76 10^6/uL (4.30-6.10); WHITE BLOOD COUNT 4.1 10^3/uL (4.0-10.0)
[2018-08-03 13:39] LABS: ALBUMIN 4.1 GM/DL (3.5-5.2); BLOOD UREA NITROGEN 17 MG/DL (6-20); CARBON DIOXIDE LEVEL 32 MEQ/L (23-31); CHLORIDE LEVEL 99 MMOL/L (98-107); CREATININE FOR GFR 1.07 MG/DL (0.90-1.30); GLOMERULAR FILTRATION RATE > 60.0 (>56); GLUCOSE, FASTING 113 MG/DL (70-105); POTASSIUM SERUM 4.3 MMOL/L (3.5-5.1); SODIUM LEVEL 138 MMOL/L (136-145); TOTAL PROTEIN 7.6 GM/DL (6.4-8.3)
--- NOTE | 2018-08-04 12:29 | MEDONC ---
MEDICAL ONCOLOGY FOLLOWUP. 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 Original pathology read as BENITO negative. Later thought to be BENITO positive, perineural invasion also present. At time of treatment based on overall medical clinical picture and what was thought to be BENITO disease, adjuvant chemotherapy not recommended. 2. Chronic back pain related to old work injuries on chronic opioids with uncertain contribution to pain of new recurrent cancer maintained on high-dose long-acting and short-acting opioids. INTERVAL HISTORY: Lex is here after seeing Dr. Colon and discussing salvage surgery options. There is no evidence of distant disease by staging imaging. I also reviewed with Lex the options that Dr. Colon and I also discussed including: Induction chemotherapy with [id number] drug regimen followed by radical surgery; palliative chemotherapy; palliative chemo immunotherapy. Without induction chemotherapy and radical surgery, Lex's chance of cure is extremely low. With the surgery, he will have a small chance of cure with a certainty of disfigurement and lifetime complications such as loss of tongue, inability to speak, major disfigurement and all of the potential personal consequences that that would bring. Lex and his and I sat for quite a long time discussing the options and I conveyed that this is truly his decision but laid out the treatment options from the medical oncology side. I explained with palliative treatment, we could use a combination of chemo and immunotherapy currently thought to offer the best chance of longer-term progression free survival in the palliative setting specifically a [place] plus 5-FU plus pembrolizumab. We could then continue the patient on maintenance pembrolizumab depending on response. This would be more tolerable than the induction type chemotherapy, certainly in the short-term more tolerable than induction chemotherapy and surgery but of course does not offer cure. It does off for potential high quality of life. Throughout the visit, I reviewed the risks, benefits and side effects of induction Taxotere/5-FU/cisplatin versus a modest treatment such as combination 5-FU/ cetuximab versus 5-FU/carboplatin/pembrolizumab including but not limited to alopecia, nephrotoxicity, autoimmune side effects such as thyroiditis, dermatitis, colitis, pneumonitis, hypophysitis, myelosuppression. To the best of by ability, I answered all of Lex's and his 's questions. Lex made the decision he would like to try the immunotherapy and chemotherapy. This will be a nonstandard approach but I have spoken with the [employer] account representative and [employer] often will approve promising treatment based on existing studies. The keynote-048 phase 3 study of first-line pembrolizumab in recurrent head and neck squamous cell carcinoma as demonstrated efficacy and is currently being considered by the FDA for approval in combination with a platin and 5-FU. Patient's with PD-L1 positive tumor appear to have optimal response but all the patients benefited regardless of PD-L1 status. I have requested PD-L1 staining on prior tissue, this is pending. IMPRESSION: Recurrent head and neck cancer, oral pharyngeal in a previously radiated field involving left neck, cervical adenopathy, parotid and base of tongue mass occurring 4 months after completing adjuvant radiation following glossectomy and radical neck dissection. The patient's ECOG performance status is 1 limited by chronic pain on high-dose opioids. Today Lex elects for palliative treatment with combination 5-FU/carboplatin/pembrolizumab as I have laid out according to this keynote 048 study. Pending [facility] approval of compassionate use, will start Lex on carboplatin/5-FU given his discomfort and the bulky nature of his recurrence. Risks, benefits, side effects were discussed today. Chemotherapy consent obtained. Time statement: 45 minutes was spent [id number] with the patient, more than 50% involving counseling regarding all of the issues detailed above concerning recurrent head and neck cancer, treatment options, treatment, benefits, risks and side effects, schedule. Electronically Signed by Deanna Yoder MD 08/05/2018 03:14 P DD: Deanna Yoder MD 07/31/2018 05:55 P DT: [email or web address] 08/04/2018 09:25 A CC: MD Javier Bull MD John R. Leuenberger, DO Mark Marzouk, MD
--- NOTE | 2018-08-05 12:20 | MEDONC ---
MEDICAL ONCOLOGY FOLLOWUP/TREATMENT DATE OF SERVICE: 08/03/2018 Lex is seen today by Carmen Dwyer NP with Dr. Rosado the covering physician. DIAGNOSIS: Locally recurrent HPV negative oropharyngeal head and neck cancer involving the base of tongue mass and parotid mass with significant local extension 4 months after surgery and radiation completed February of 2018, recurrence occurring in the radiated field within 4 months of completion of radiation previously. INTERVAL HISTORY: Lex presents today to initiate treatment utilizing Carboplatin and 5-FU infusion days 1-4 with a plan to initiate pembrolizumab (pending insurance authorization) starting day 1, cycle 2. Since we saw Lex last, he has had left anterior chest [id number]-[id number] placed by Dr. Stout without incident. His port was accessed today without incident. He offers no new complaints. For pain control, he continues with OxyContin and oxycodone per Dr. Nina. The patient's other medications include amitriptyline 200 mg p.o. daily, duloxetine 30 mg p.o. daily, gabapentin 300 mg p.o. daily, metformin 1000 mg p.o. q. p.m. Vital signs reviewed today and are stable with a temperature of 98.6, pulse 83, respirations 18, BP 117/73, O2 sat 93% at rest on room air. Physical exam deferred. LABORATORY DATA: CBC today, WBC 4.1, ANC 3.0, RBC 3.76, hemoglobin and hematocrit 11.8, 34.5, platelets 284. Chemistries are unremarkable. IMPRESSION: Lex is a very pleasant 58 year old male with locally recurrent HPV negative oropharyngeal head and neck cancer involving base of tongue mass and parotid mass with significant local extension 4 months after surgery and radiation completed February 2018, recurrence occurring in the radiation field within 4 months of completion of radiation previously. ECOG performance status 1. Lex presents today to initiate chemotherapy day 1, cycle 1 of carboplatin and 5-FU to be given q. 21 days. Insurance authorization is pending for pembrolizumab with this regimen. Hopefully. we have authorization by the patient's next schedule cycle. Lex offers no new complaints today. His blood work and vital signs are acceptable. We will continue to follow him carefully. He will be given appropriate appointments for followup and his next day 1, cycle 2 of treatment. It was reinforced to Lex and his to contact our office in the interim of his appointment with any new symptoms, questions or problems. Reviewed by Carmen Dwyer NP 08/05/2018 03:52 P Edited and Electronically Signed by Marni Rosado MD 08/16/2018 01:08 P DD: Carmen Dwyer NP 08/03/2018 01:54 P DT: [email or web address] 08/05/2018 11:52 A CC: MD Ez Murcia MD
[2018-08-24 08:38] VITALS: BP 127/88
[2018-08-24 08:50] LABS: BASO % 0.5 % (0.0-1.0); EOS % 1.4 % (0.0-3.0); HEMATOCRIT 33.7 % (42.0-52.0); HEMOGLOBIN 11.4 g/dl (13.5-17.5); LYMPH # 0.3 10^3/uL (1.5-4.5); MEAN CORPUSCULAR HEMOGLOBIN 30.2 pg (27.0-33.0); MEAN CORPUSCULAR HGB CONC 33.8 g/dl (32.0-36.5); MEAN CORPUSCULAR VOLUME 89.2 fl (80.0-96.0); MONO # 0.2 10^3/uL (0.0-0.8); NEUTROPHILS # 1.6 10^3/uL (1.8-7.7); NEUTROPHILS % 74.8 % (36.0-66.0); PLATELET COUNT, AUTOMATED 217 10^3/uL (150-450); RED BLOOD COUNT 3.78 10^6/uL (4.30-6.10); WHITE BLOOD COUNT 2.1 10^3/uL (4.0-10.0)
[2018-08-24 09:02] LABS: BLOOD UREA NITROGEN 14 MG/DL (6-20); CARBON DIOXIDE LEVEL 28 MEQ/L (23-31); CHLORIDE LEVEL 100 MMOL/L (98-107); CREATININE FOR GFR 1.05 MG/DL (0.90-1.30); GLOMERULAR FILTRATION RATE > 60.0 (>56); GLUCOSE, FASTING 130 MG/DL (70-105); POTASSIUM SERUM 4.3 MMOL/L (3.5-5.1); SODIUM LEVEL 138 MMOL/L (136-145); TOTAL PROTEIN 7.8 GM/DL (6.4-8.3)
[2018-08-24 09:21] LABS: LYMPH % 13.3 % (24.0-44.0)
--- NOTE | 2018-08-31 07:58 | MEDONC ---
MEDICAL ONCOLOGY FOLLOWUP/TREATMENT VISIT: DATE OF SERVICE: 08/24/2018 DIAGNOSIS: 1. 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 Now on first-line palliative treatment with chemo immunotherapy. 2. Stage III, T2N1 (BENITO negative. Original pathology later found to be BENITO positive) M0 oral tongue squamous cell carcinoma, HPV negative diagnosed November 2017 presenting with left posterior tongue mass and cervical lymphadenopathy status post left partial glossectomy 11/12/2017, left modified radical neck dissection 12/05/2017. Final pathology notable for PNI, 07/13 nodes. What was thought to be originally no extranodal extension later, in an addendum identifying BENITO. (Please see 07/13/2018 note for treatment history). CURRENT THERAPY: Carboplatin/5-FU/pembrolizumab q. 21 days. Today will be day 1, cycle two. Pembrolizumab not available on cycle one will begin at this cycle two. Plan is for six cycles of triple therapy followed by maintenance pembrolizumab. INTERVAL HISTORY: Lex reports feeling minimal improvement. He still has some pain. Doing his best to take in nutrition. He denies any new numbness, tingling. Denies vomiting. Did have some nausea, has ondansetron prochlorperazine. REVIEW OF SYSTEMS: In addition to pertinent positives and negatives above, Lex denies shortness of breath, cough that is new, hemoptysis, numbness or tingling in his jaw or arms, back pain. PHYSICAL EXAMINATION: Weight 70.9 kg, temperature 97.9, blood pressure 127/88, heart rate 92, respiratory 20, O2 sat 94%. Patient is a normal weight, middle-aged man with some disfigurement of the left neck. Oropharynx with moist pink mucous membranes. Slight tenderness in the left posterior molar area without bleeding or fluctuance. No new bulky adenopathy. There is just firm, fixed, palpable left upper cervical lymphadenopathy. No right supraclavicular, right axillary, no left supraclavicular adenopathy. Respiratory: Clear lungs to auscultation bilaterally, anteriorly and posteriorly. Cardiac: S1,S2 regular rate and rhythm. No murmurs or gallops. Abdomen: Soft, nontender, nondistended, no hepatosplenomegaly or mass. Extremities: No edema. Lymph nodes: As described above. No axillary adenopathy bilaterally. LABS: WBC 2.1, ANC 1.6, hemoglobin 11, hematocrit 33, platelets 217, MCV 89. Electrolytes normal. GFR greater than 60. Liver functions normal, TSH 0.615. IMPRESSION: Lex Schultz is a 58-year-old man with locally recurrent squamous cell carcinoma of head and neck in a previously radiated field here for cycle two carboplatin/5-FU/pembrolizumab. He has some leukopenia and borderline neutropenia. He has had no major reduction in left bulky lymph nodes since starting treatment 3 weeks ago but pembrolizumab only begins today. His ECOG performance status is 1. He will need G-CSF support for this cycle. Treatment involves pembrolizumab and carboplatin on day 1, 5-FU days 1-4. He, therefore needs to return on Friday or next Friday for Neulasta. PLAN: 1. Proceed with cycle two today. 2. Add G-CSF support to this and the subsequent cycles for persistent neutropenia. 3. Will do a 10-day robby check to make sure he is tolerating treatment well. He is chemotherapy naive, but due to prior radiation may have low bone marrow reserve 4. Neck CT with contrast to assess for major disease progression given lack of clinical change on exam today. If only marginal would proceed with a second cycle and possibly third before restaging or continuing, abandoning this plan of treatment. Electronically Signed by Deanna Yoder MD 09/02/2018 05:45 P DD: Deanna Yoder MD 08/28/2018 04:26 P DT: [email or web address] j 08/31/2018 07:43 A CC: MD Ez Murcia MD
[2018-08-31 11:29] VITALS: BP 138/87
[2018-09-01 13:40] VITALS: BP 103/70
[2018-09-01 14:59] LABS: HEMATOCRIT 34.5 % (42.0-52.0); HEMOGLOBIN 11.2 g/dl (13.5-17.5); LYMPH % 6.9 % (24.0-44.0); MEAN CORPUSCULAR HGB CONC 32.5 g/dl (32.0-36.5); MEAN CORPUSCULAR VOLUME 92.6 fl (80.0-96.0); NEUTROPHILS # 9.1 10^3/uL (1.8-7.7); NEUTROPHILS % 90.8 % (36.0-66.0); RED BLOOD COUNT 3.73 10^6/uL (4.30-6.10)
[2018-09-01 15:01] LABS: ALBUMIN 3.9 GM/DL (3.5-5.2); BLOOD UREA NITROGEN 21 MG/DL (6-20); CALCIUM LEVEL 9.7 MG/DL (8.5-10.2); CARBON DIOXIDE LEVEL 30 MEQ/L (23-31); CHLORIDE LEVEL 99 MMOL/L (98-107); CREATININE FOR GFR 1.11 MG/DL (0.90-1.30); GLOMERULAR FILTRATION RATE > 60.0 (>56); GLUCOSE, FASTING 141 MG/DL (70-105); SODIUM LEVEL 136 MMOL/L (136-145); TOTAL PROTEIN 7.3 GM/DL (6.4-8.3)
[2018-09-01 15:07] LABS: INR 1.22; PROTHROMBIN TIME 15.6 SECONDS (12.1-14.4)
[2018-09-01 15:08] LABS: PARTIAL THROMBOPLASTIN TIME 31.3 SECONDS (25.4-37.6)
--- NOTE | 2018-09-01 16:50 | MEDONC ---
MEDICAL ONCOLOGY UNSCHEDULED FOLLOWUP / TREATMENT VISIT DATE OF SERVICE: 08/31/2018 Lex is seen today by Carmen Dwyer NP with Dr. Deanna Yoder the supervising physician. DIAGNOSIS 1. Locally recurrent HPV negative oropharyngeal/oral tongue squamous cell carcinoma diagnosed May 2018 with bulky local lymphadenopathy in a previously radiated field in the left upper cervical neck. Now on first-line palliative treatment with chemo / immunotherapy. 2. Stage III, T2N1 (BENITO negative. Original pathology later found to be BENITO positive) M0 oral tongue squamous cell carcinoma, HPV negative diagnosed November 2017 presenting with left posterior tongue mass and cervical lymphadenopathy, status post left partial glossectomy 11/12/2017, left modified radical neck dissection 12/05/2017. Final pathology notable for PNI, 07/13 nodes. What was thought to be originally no extra leonardo extension later in an addendum identifying BENITO. (Please see 07/13/2018 note for treatment history). 3. Recent syncopal episodes of unclear etiology for which the patient is being seen for an unscheduled visit today. CURRENT THERAPY Carboplatin/5-FU/pembrolizumab q. 21 days. Day one cycle two was 08/24/2018. Pembrolizumab not available on cycle one, began at cycle two. Plan was for six cycles of triple therapy followed by maintenance pembrolizumab. INTERVAL HISTORY As noted above, Lex is seen emergently today due to complaints of multiple episodes of syncope over the weekend. Upon further questioning, most of the syncopal episodes have been with position change. Clearly on exam today, Lex has orthostatic hypotension with a sitting BP of 121/86 and standing 86/61. He is also complaining of increasing left ear and neck pain over the past week as well. At present, Lex denies any other neurological symptoms. He specifically denies headaches, visual disturbance, any generalized weakness or numbness. Unfortunately, due to dysphasia, he is only able to tolerate Boost for nutrition, consuming no more than 2 cans per day. Lex was also started on Diflucan 100 mg 1 tablet p[address] daily by Dr. Yoder on 08/28/2018 for oral candidiasis. REVIEW OF SYSTEMS: Pertinent positives as noted above. In addition, the patient admits to generalized fatigue. He denies any dyspnea, cough, chest pain, fevers or chills, nausea or vomiting, diarrhea, constipation, new skeletal pain or extremity edema. PHYSICAL EXAMINATION Weight is 70.9 kg, temperature 97.3, pulse 101, respirations 16, initial blood pressure reading upon being roomed was 138/87, O2 sat 96% at rest on room air. GENERAL: Exam reveals a middle-aged man thin, with some disfigurement of the left neck. Evidence of oral candidiasis is present in the oral cavity and tongue. There is tenderness and palpable left cervical lymphadenopathy. Examination of the left ear canal is negative for erythema, swelling or any discharge. Inspection of the left eardrum is unremarkable. CARDIAC: S1, S2. LUNGS: Sounds are clear to auscultation bilaterally, anteriorly and posteriorly. EXTREMITIES Without clubbing, cyanosis or edema. LABORATORY DATA None from today. SOLA Burnett is a pleasant 58-year-old man with locally recurrent squamous cell carcinoma of head and neck in a previously radiated field, here today for Neulasta and seen for an unscheduled visit due to frequent syncopal episodes over the weekend of unclear etiology. The patient also reports left ear pain and neck pain of unclear etiology. Upon review in the EMR of the patient's recent imaging, CT of the neck done on 08/28/2018, it unfortunately shows evidence of progressive involvement of the soft tissues of the left neck and the left posterior tongue. Possible 7-mm tracheal polyp versus mucoid material. Lex's recurrent syncopal episodes may be secondary to dehydration, however, there is also a significant concern for metastatic disease to the brain. Lex is therefore agreeable to obtaining a stat CT of the head with contrast today. Since there is time in the schedule for him to receive hydration prior to his scheduled CT appointment time, we are also going to hydrate him with 1000 mL of normal saline. Lex will be scheduled to return for followup tomorrow with Dr. Yoder (09/01/2018) for further decision making and also for possible IV hydration. Lex will be contacted sooner if evidence of metastatic disease to the brain to initiate steroid therapy. The patient and his son are in agreement with our plan. In the interim of his appointment with Dr. Yoder tomorrow, should he have progressive symptoms, the patient was advised to report right to the nearest emergency room. Reviewed by Carmen Dwyer NP 09/02/2018 01:22 P Electronically Signed by Deanna Yoder MD 09/02/2018 05:45 P DD: Carmen Dwyer NP 08/31/2018 12:18 P DT: [email or web address] 09/01/2018 04:30 P CC:
[2018-09-02 09:45] VITALS: BP 118/76
--- NOTE | 2018-09-02 12:00 | MEDONC ---
MEDICAL ONCOLOGY FOLLOWUP DATE OF SERVICE: 09/01/2018 DIAGNOSIS: 1. Recurrent HPV negative oropharyngeal/oral tongue squamous cell carcinoma in a previously radiated field involving bulky left upper neck lymphadenopathy and base of tongue mass. On first-line palliative treatment, begun 08/03/2018. 2. Stage III, T2N1 (BENITO positive on pathology revision), HPV negative squamous cell carcinoma of oral tongue diagnosed November 2017, status post left partial glossectomy 11/12/2017, left modified radical neck dissection 12/05/2017. Final pathology positive for PNI, 07/13 nodes, reversed BENITO status two positive. 3. Cancer-related pain, left neck. 4. Chronic low back pain on [employer] opioids. CURRENT THERAPY: Carboplatin/5-FU/pembrolizumab q. 21 days, day one cycle one 08/03/2018; day one cycle two 08/24/2018. The pembrolizumab added only as of cycle two. INTERVAL HISTORY: Lex was here yesterday complaining of orthostasis. He has orthostatic blood pressure measurement today. It appears he is essentially not eating, and this has been the case for several weeks. He got fluids yesterday. A head CT was negative for evidence of vascular threatening lesions or any other lesion. Neck CT was not repeated yesterday; 08/28/2018, neck CT was read as showing disease progression versus July 16, described as increased prominence, but the actual measurements changing by millimeters. Lex describes persistent pain despite fentanyl 100 and oxycodone 10 p.r.n. Clinically, on observation, there is no increased bulk to his left neck. There is bulky fixed adenopathy. He has been taking fluconazole, and on inspection of the oropharynx, there is some, but less, whitish gummy adherence to the roof of the posterior pharynx. Vital signs: Temperature 97.6, blood pressure 103/70, heart rate 95, respiratory 20, O2 sat 94%. The nurse showed me but she did not, I guess, record another set of vital signs upright with systolic pressure dropping below 100. I spoke at length to Lex and his about whether his overall poor current status reflects disease progression or simply malnutrition and dehydration. The big issue is whether first-line treatment is working or not. He is chemonaive, completely chemorefractory tumor would be somewhat unusual; his recurrence occurred fairly quickly after radiation in the field, suggesting radio-refractory disease. We spoke at great length about options, which include abandoning current treatment and thinking about palliative measures versus restaging quickly to assess whether disease at has at lease stabilized; we discussed pain management; we discussed hydration and nutrition including PEG placement. At length, after extensive review of current options, together Lex, his , and I made the following plan. IMPRESSION: HPV negative oropharyngeal, oral tongue squamous cell carcinoma with early recurrence after glossectomy, lymph node dissection, and radiation, now on first-line palliative treatment with carboplatin/5-FU/pembrolizumab, immunotherapy begun as of day one cycle two. Obvious poor performance status and inability to take in significant p.o.'s, though slight improvement of thrush on fluconazole. Persistent cancer-related pain. PLAN: 1. CBC, CMP, PT/PTT today. 2. D5 normal saline 1 liter with 20 mEq of potassium IV daily for 2 weeks. 3. MALENA PEG placement for nutrition. 4. Repeat neck CT with contrast late this week, compare to 08/28/2018. If progression in short term, will strongly recommend to Lex to consider hospice care. 5. Increase fentanyl patch to 112 mcg as follows: Lex's currently weight on 100 mcg patch I have written a prescription for a 6-day supply of a 12 mcg patch. He will add this and we will reassess his pain control once he has been using these for a little bit. He is opioid tolerant based on years of long-term opioids for chronic disability-related pain. 6. I will see him back in 1 week if not sooner, or depending on symptoms. TIME STATEMENT: 45 MINUTES SPENT FACE TO FACE with the patient more than 50% involved in counseing regardng pain management, disease progression signs, timing of restaging, current treatment plan, signs of progression, hydration, feeding tube placement, and answering all of the patient's and his 's questions Electronically Signed by Deanna Yoder MD 09/02/2018 05:45 P DD: Deanna Yoder MD 09/01/2018 02:26 P DT: [email or web address] 09/02/2018 11:35 A CC: DO Erma Nunes MD
[2018-09-03 09:57] VITALS: BP 125/82
[2018-09-07 11:26] VITALS: BP 129/79
[2018-09-08 09:28] LABS: HEMATOCRIT 31.9 % (42.0-52.0); LYMPH % 19.7 % (24.0-44.0); MEAN CORPUSCULAR HEMOGLOBIN 28.9 pg (27.0-33.0); MEAN CORPUSCULAR HGB CONC 31.3 g/dl (32.0-36.5); MEAN CORPUSCULAR VOLUME 92.2 fl (80.0-96.0); NEUTROPHILS # 2.1 10^3/uL (1.8-7.7); NEUTROPHILS % 73.6 % (36.0-66.0); RED BLOOD COUNT 3.46 10^6/uL (4.30-6.10); WHITE BLOOD COUNT 2.8 10^3/uL (4.0-10.0)
[2018-09-08 09:38] LABS: ALBUMIN 3.7 GM/DL (3.5-5.2); BLOOD UREA NITROGEN 10 MG/DL (6-20); CALCIUM LEVEL 9.7 MG/DL (8.5-10.2); CARBON DIOXIDE LEVEL 30 MEQ/L (23-31); CHLORIDE LEVEL 98 MMOL/L (98-107); CREATININE FOR GFR 0.94 MG/DL (0.90-1.30); GLOMERULAR FILTRATION RATE > 60.0 (>56); GLUCOSE, FASTING 123 MG/DL (70-105); POTASSIUM SERUM 4.2 MMOL/L (3.5-5.1); SODIUM LEVEL 135 MMOL/L (136-145)
[2018-09-08 10:12] VITALS: BP 119/80
[2018-09-09 09:59] VITALS: BP 127/81
--- NOTE | 2018-09-09 10:02 | MEDONC ---
MEDICAL ONCOLOGY FOLLOWUP DATE OF SERVICE: 09/08/2018 DIAGNOSES: 1. 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 Currently on first-line palliative treatment with stabilized disease, though no major clinical regression. 2. 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 Final pathology positive for PNI, 07/13 nodes, and BENITO positive, status (reversed after initially thought BENITO negative). 3. Cancer-related pain involving left neck. 4. Chronic low back, nonmalignancy-related, on many-years long-term opioids. CURRENT THERAPY: Carboplatin/5-FU/pembrolizumab q. 21 days, day 1, cycle one 08/03/2018; day 1, cycle two 08/24/2018 with pembrolizumab added in as of cycle two. Evidence on repeat neck CT 09/04/2018 of stable disease during cycle two, though the patient complained of subjectively feeling the tumor was growing. INTERVAL HISTORY: Lex is here for a brief followup. He has been receiving IV fluid daily while we await his getting a PEG. His net weight loss continues. Weight today 68 kg down from peak of 101 kg in November 2017 with significant weight loss beginning in June 2018. He has lost 10 kg since June. He was unable to fill the additional fentanyl patch prescription due to insurance delays. We are working on this, and I asked our nurse navigator to get involved today on the case. Lex reports no major change in his symptoms but feels overall better with the daily hydration. He completed a course of fluconazole. Has not taken it for a day or two. REVIEW OF SYSTEMS: In addition to pertinent positives and negatives above, Lex denies fevers, chills, hemoptysis, new shortness of breath or difficulty swallowing, abdominal discomfort, constipation. Remainder of twelve-system review negative. PHYSICAL EXAMINATION: Weight 68 kg, temperature 99, blood pressure 119/80, heart rate 70, respiratory 20, O2 sat 96%. Head and neck exam: There is bulky palpable fixed adenopathy involving the left upper neck, but the skin opening has cleared up. There is no longer a scab or ulcer involving the left upper dominant neck mass; and subjectively, there appears to be possible slight decrease in the size of the left neck adenopathy. Oropharynx is clear. Moist pink mucous membranes. There is only scant site of whitish adherent gummy substance. No fluctuance. No gum tenderness. Uvula and tongue are midline. LABS: WBC 2.8, ANC 2100, hemoglobin 10, hematocrit 32, platelets 54. Electrolytes within normal limits. Glucose 123, AST and ALT and low or normal, TSH 0.65 normal. IMPRESSION: Lex Schultz is a 58-year-old man with chronic pain, opioid-dependent, and recently diagnosed with left oral tongue stage III, T2N1 HPV negative squamous cell carcinoma, status post partial glossectomy and neck dissection in October and November, respectively, followed by radiation completed 03/09/2018, with involved field recurrence 06/2018. He is currently on first-line palliative treatment with carboplatin/5-FU/pembrolizumab begun July 2018 with pembrolizumab added in on cycle two early August. Clinically, with stable disease. Pain is suboptimally controlled. Lex has a long-time history of chronic opioid use. I am currently titrating up only his long-acting patch from 100-112 mcg. Delays in getting this because of insurance delay. A rapid restaging of the neck does show stable disease since early August, and he has improved clinically with daily hydration. PEG is planned. PLAN: 1. Return in 1 week to begin day 1, cycle three as of September 14. Of note, today's thrombocytopenia suggests we may have a delay starting treatment next week. If persistent thrombocytopenia, will consider dose reduction. 2. PEG placement order reminder placed today. Our nurse navigator's help is very hopefully getting involved. 3. I have also asked her nurse navigator to help expedite getting the fentanyl 12 mcg patch to add to his other regimen, as we try to manage his pain during treatment. TIME STATEMENT: 20 minutes spent face to face with the patient more than 50% involved in counseling regarding CT results, pain managmement, clinical goals Electronically Signed by Deanna Yoder MD 09/09/2018 11:35 A DD: Deanna Yoder MD 09/08/2018 05:54 P DT: aml 09/09/2018 09:38 A CC: Van Jimenez,
[2018-09-14 08:23] VITALS: BP 125/78
[2018-09-14 08:34] LABS: HEMATOCRIT 28.8 % (42.0-52.0); HEMOGLOBIN 9.3 g/dl (13.5-17.5); MEAN CORPUSCULAR HEMOGLOBIN 29.5 pg (27.0-33.0); MEAN CORPUSCULAR HGB CONC 32.3 g/dl (32.0-36.5); MEAN CORPUSCULAR VOLUME 91.3 fl (80.0-96.0); NEUTROPHILS # 2.6 10^3/uL (1.8-7.7); NEUTROPHILS % 77.9 % (36.0-66.0); RED BLOOD COUNT 3.15 10^6/uL (4.30-6.10); WHITE BLOOD COUNT 3.4 10^3/uL (4.0-10.0)
[2018-09-14 09:12] LABS: ALBUMIN 3.9 GM/DL (3.5-5.2); BLOOD UREA NITROGEN 12 MG/DL (6-20); CALCIUM LEVEL 10.1 MG/DL (8.5-10.2); CARBON DIOXIDE LEVEL 30 MEQ/L (23-31); CHLORIDE LEVEL 100 MMOL/L (98-107); CREATININE FOR GFR 1.26 MG/DL (0.90-1.30); GLOMERULAR FILTRATION RATE > 60.0 (>56); GLUCOSE, FASTING 134 MG/DL (70-105); POTASSIUM SERUM 3.9 MMOL/L (3.5-5.1); SODIUM LEVEL 138 MMOL/L (135-145); TOTAL PROTEIN 7.4 GM/DL (6.4-8.3)
[2018-09-18 12:00] VITALS: BP 128/80
[2018-09-21 10:23] VITALS: BP 117/79
[2018-09-21 10:43] VITALS: BP 117/74
[2018-09-21 11:26] VITALS: BP 113/70
[2018-09-21 12:22] VITALS: BP 120/76
[2018-09-21 13:33] VITALS: BP 117/72
[2018-09-21 13:58] VITALS: BP 125/73
--- NOTE | 2018-09-22 11:47 | MEDONC ---
MEDICAL ONCOLOGY FOLLOWUP / TREATMENT VISIT DATE OF SERVICE: 09/14/2018 DIAGNOSES: 1. Recurrent HPV negative oropharyngeal / oral tongue squamous cell carcinoma involving bulky left upper neck lymph nodes in a previously radiated field and base of tongue mass. Currently on first line palliative treatment with stabilized disease. 2. 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 Final pathology positive for PNI, 07/13 nodes, BENITO positive status (on pathology reversal after a review). 3. Cancer related pain involving left neck superimposed on chronic back pain. 4. 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 CURRENT THERAPY: Carboplatin / 5-FU / pembrolizumab q. 21 days day one, cycle one 08/03/2018 with pembrolizumab added as of day one, cycle two. Repeat neck CT 09/04/2018 with stable disease. Fentanyl 100 mcg and 12 mcg patches q. 3 days for total of 112 mcg q. 3 days. Oxycodone 10 mg up to four times a day (increase at the time of initial diagnosis of recurrent disease. Goal will be taper). INTERIM HISTORY: Lex is here for day one, cycle three. He complains the 12 mcg patch addition is not helping. At this point, because I am treating him for cancer pain, we will transfer his overall opioid prescriptions from his primary care Dr. Jimenez to myself. Lex is likely opioid tolerant to a high degree having been on these for years and years prior to his cancer diagnosis. He also complains of mouth pain, difficulty swallowing. Brief exam, temperature 97.2, weight 67.8 kg, blood pressure 125/78, heart rate 91, respiratory 20, O2 sat 93%. Oropharynx has widely distributed plaque-like whitish, gummy plaque over the soft and hard palate, buccal mucosa, tongue consistent with thrush. Neck: No change in size of slight fixed firm left neck adenopathy, closed healed site of previous skin dehiscence over the recurrence. LABORATORY DATA WBC 3.4, ANC 2600, hemoglobin 9.3, hematocrit 28, platelets 239. Electrolytes normal. Liver functions normal. TSH 1.2. IMPRESSION: Recurrent head and neck oropharyngeal carcinoma involving base of tongue mass and left cervical lymphadenopathy in a previously radiated field occurring approximately 6 months after completing surgery and radiation for high-risk stage III disease not treated with adjuvant chemotherapy. Cancer related pain under moderate control in an opioid tolerant patient with a personal history of long-term chronic non cancer pain. Thrush. Continued weight loss but good hydration status currently after daily hydration for 2 weeks. PLAN: 1. Continue current pain regimen of 112 mcg fentanyl patch, rescue oxycodone 10 mg up to four times a day. 2. Current plan will be to begin tapering down the rescue dose to a three times a day oxycodone 10 mg as this dose was acutely raised and frequency increased about 2 months ago in the setting of recurrent disease. 3. Continue as needed IV hydration. 4. Nutrition consult. 5. Fluconazole 100 mg daily, take 2 tablets day one, continue on 100 mg. 6. Change premed dose to liquid Tylenol today. 7. 2 units RBC transfusion of blood anticipating further chemotherapy induced anemia. 8. Proceed with cycle three chemotherapy today. 9. Clinic return in 4 weeks for day one, cycle four. Electronically Signed by Deanna Yoder MD 09/29/2018 04:24 P DD: Deanna Yoder MD 09/20/2018 12:54 P DT: walter 09/22/2018 11:35 A CC: DO Erma Nunes MD
[2018-10-05 08:46] LABS: HEMATOCRIT 33.5 % (42.0-52.0); LYMPH % 13.3 % (24.0-44.0); MEAN CORPUSCULAR HEMOGLOBIN 30.6 pg (27.0-33.0); MEAN CORPUSCULAR HGB CONC 32.8 g/dl (32.0-36.5); MEAN CORPUSCULAR VOLUME 93.2 fl (80.0-96.0); NEUTROPHILS # 4.8 10^3/uL (1.8-7.7); NEUTROPHILS % 79.2 % (36.0-66.0); RED BLOOD COUNT 3.59 10^6/uL (4.30-6.10)
[2018-10-05 08:57] VITALS: BP 128/86
[2018-10-05 09:21] LABS: ALBUMIN 3.9 GM/DL (3.5-5.2); BLOOD UREA NITROGEN 20 MG/DL (6-20); CALCIUM LEVEL 10.1 MG/DL (8.5-10.2); CARBON DIOXIDE LEVEL 32 MEQ/L (23-31); CHLORIDE LEVEL 99 MMOL/L (98-107); CREATININE FOR GFR 1.13 MG/DL (0.90-1.30); GLOMERULAR FILTRATION RATE > 60.0 (>56); GLUCOSE, FASTING 160 MG/DL (70-105); POTASSIUM SERUM 3.9 MMOL/L (3.5-5.1); SODIUM LEVEL 137 MMOL/L (135-145); TOTAL PROTEIN 7.1 GM/DL (6.4-8.3)
[2018-10-05 09:30] LABS: FREE T4 0.99 NG/DL (0.76-1.46); THYROID STIMULATING HORMONE 1.65 uIU/ML (0.358-3.740)
[2018-10-09 10:45] VITALS: BP 113/81
--- NOTE | 2018-10-09 15:36 | MEDONC ---
MEDICAL ONCOLOGY FOLLOWUP DATE OF SERVICE: 10/05/2018 DIAGNOSES: 1. 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 Currently on first-line palliative treatment with modest response. 2. 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 (Final pathology positive for perineural invasion, 07/13 nodes, BENITO positive status was delivered on a reversal and pathology addendum following tumor board and treatment planning.) 3. Cancer related pain involving left neck superimposed on chronic back pain with opioid dependence. 4. Chronic non cancer related low back pain on intermediate opioid use. CURRENT THERAPY: Carboplatin/5-FU/ pembrolizumab q. 21 days day one cycle one 08/03/2018 with pembrolizumab added as of day one cycle two. CT neck between cycles two and three with stable disease. Fentynal 125 mcg q. 3 days, oxycodone 10 mg t.i.d. INTERVAL HISTORY: Lex's pain meds were recently increased to fentanyl 125 mcg after he called complaining of additional pain. I talked him today about trying to back down on the amount of opioids as he has had a fairly significant escalation of these in the last few months without clear evidence of disease progression and with clinical evidence of disease regression in the left neck. We talked at length about the problem of chronic opioid use, opioid dependence, tolerance, and pain perception. He then said it is his low back pain that is bothering him. Because the main prescriber of his pain med switched from his primary care doc to myself recently we are in the midst of trying to manage new or possible new cancer related pain in the setting of old chronic opioid use for an indefinite and many years standing low back pain. Today will normally be day one cycle four treatment day one cycle three of immunotherapy. Lex says his side of mouth pain is not much less but it his thrush has significantly improved. He has now had a pack PEG placed. Tried using it a few times but does not like using it and is trying to take in more Boost by mouth. A nutrition consult was requested/ordered. Lex says he received no calls. We will work on this as well. I suggested that because of his pain complaints and to assess response to treatment we again obtain restaging scans including neck and chest at this time. He is willing to do this. REVIEW OF SYSTEMS: Lex denies fevers, chills, cough, nausea, vomiting, blood in stool or urine, rash, diarrhea, palpitations. Remainder of 12 system review negative. PHYSICAL EXAMINATION: Weight 66.3 kg, continued weight loss. Temperature 96.3. Blood pressure 128/86. Heart rate 85, respiratory 18. O2 sat 96%. Patient is a very thin middle-aged man in no distress. Respiratory: Clear lungs, but shallow breath sounds throughout. Cardiac: S1, S2, regular rate and rhythm. No murmur. No gallop. Abdomen: PEG in place. Soft, nontender. Clean, dry PEG site. Extremities: No edema. Head and neck: Oropharynx with moist pink mucous membranes. Difficulty for the patient at opening mouth wide but no evident bleeding. No white plaque, Lymph nodes: No right submandibular or cervical, supraclavicular or axillary adenopathy. In the left cervical neck there is a healed biopsy site in the mid cervical area laterally and a smooth indurated slight prominence but appears smaller than a few months ago. No palpable left supraclavicular or axillary adenopathy. LABORATORY DATA: WBC 6, hemoglobin 11, hematocrit 33, platelets 230. Electrolytes normal. Liver functions normal. TSH 1.6. Creatinine 1.1. IMPRESSION: Recurrent HPV negative oropharyngeal squamous cell carcinoma involving base of tongue mass, left cervical lymphadenopathy, left parotid soft tissue versus lymph node mass in a previously radiated and surgically treated field on first-line palliative treatment with carboplatin/5-FU/pembrolizumab with modest response, stable disease. Acute on chronic pain trying to titrate back on some of these pain meds as they were quickly increased on demand without objective evidence of a clear cause. PLAN: 1. Cycle four carbo/5-FU/pembrolizumab today. 2. Together, Lex and I agree that his maximum fentanyl patch dose will be brought down from 125 to 112 at next refill, oxycodone maintained at 10 mg up to three times daily as rescue, and the p.r.n. dosing will be prescribed on an every 7 or 14 day basis. 3. Restaging neck and chest exams with contrast to assess for response to treatment. ADDENDUM: 10/09/2018: Though intended for late in the current cycle, chest and neck CTs were done today instead. Unfortunately, these show progression of disease particularly at the left cervical posterior triangle lymph node area. In addition, thoracic outlet LAD. The neck progression is modest but demonstrable. The base of tongue and parotid areas appear stable both versus June and August. At this point, will need to discuss with surgery whether salvage surgery should be reconsidered. I will contact Dr. Erma Colon with current results or try additional chemotherapy, treat pain, or switch treatments. At this point, Lex's performance status is 2 at best. Whether he could tolerate a more aggressive chemotherapy regimen seems unlikely. Single-agent weekly cetuximab could be considered. I will discuss the case further with Dr. Colon. Electronically Signed by Deanna Yoder MD 10/09/2018 04:08 P DD: Deanna Yoder MD 10/09/2018 02:49 P DT: mirza 10/09/2018 03:08 P CC: DO Erma Nunes MD
--- NOTE | 2018-10-15 08:53 | MEDONCTEEN ---
MEDICAL ONCOLOGY TELEPHONE NOTE DATE OF SERVICE: 10/13/2018 On radiologic review of neck CT with contrast, from June to the present, it appears there is progression of disease involving the left cervical focus of disease and stability of left parotid and left posterior triangle. I spoke with Dr. Filiberto Colon of ENT surgery in [place] about these findings to ask whether surgery was completely off the table for a potential salvage option. Dr. Colon's reply was the prevertebral fascia, or paraspinal muscle involvement would rendered surgery of no acute utility as a curative effort. My current plan is to revisit the surgical option with Lex. If he again declined and with the understanding that cure is not possible and his life expectancy is fairly short, I then discussed second line treatment. Options include single agent cetuximab, docetaxel, Taxol, and other agents. Dr. Colon offered to review the images. I have ordered a CD of the latest neck CT to send him to spare Lex traveling to [place]. We can then discuss in an informed way whether salvage surgery is possible. Electronically Signed by Deanna Yoder MD 10/16/2018 02:38 P DD: Deanna Yoder MD 10/13/2018 06:30 P DT: walter 10/15/2018 08:45 A CC:
[2018-10-26 09:32] VITALS: BP 114/70
[2018-10-26 09:38] LABS: HEMOGLOBIN 10.2 g/dl (13.5-17.5); LYMPH % 16.1 % (24.0-44.0); MEAN CORPUSCULAR HEMOGLOBIN 31.5 pg (27.0-33.0); MEAN CORPUSCULAR HGB CONC 32.9 g/dl (32.0-36.5); MEAN CORPUSCULAR VOLUME 95.6 fl (80.0-96.0); NEUTROPHILS # 2.5 10^3/uL (1.8-7.7); NEUTROPHILS % 75.6 % (36.0-66.0); RED BLOOD COUNT 3.24 10^6/uL (4.30-6.10); WHITE BLOOD COUNT 3.3 10^3/uL (4.0-10.0)
[2018-10-26 10:06] LABS: BLOOD UREA NITROGEN 19 MG/DL (6-20); CALCIUM LEVEL 10.3 MG/DL (8.5-10.2); CARBON DIOXIDE LEVEL 30 MEQ/L (23-31); CHLORIDE LEVEL 99 MMOL/L (98-107); CREATININE FOR GFR 1.09 MG/DL (0.90-1.30); GLOMERULAR FILTRATION RATE > 60.0 (>56); GLUCOSE, FASTING 154 MG/DL (70-105); SODIUM LEVEL 138 MMOL/L (135-145); TOTAL PROTEIN 7.2 GM/DL (6.4-8.3)
--- NOTE | 2018-10-27 08:02 | MEDONC ---
MEDICAL ONCOLOGY FOLLOWUP DATE OF SERVICE: 10/26/2018 DIAGNOSES: 1. Recurrent HPV negative oropharyngeal / oral tongue squamous cell carcinoma involving left parotid lymph nodes, base of tongue mass, posterior triangle foci, recurrence diagnosed June 2018, approximately 6 months after initial treatment with surgery and radiation. Currently on first-line palliative treatment with stable disease at two sites and progression in the left cervical posterior triangle focus. 2. 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 (Final pathology positive for PNI, 07/13 nodes, BENITO positive status delivered on reversal and pathology addendum after tumor board planning session). 3. Cancer related pain involving left neck superimposed on chronic low back pain, many years opioid dependence. 4. Chronic non cancer related low back pain on skilled nursing opioid use. CURRENT THERAPY: Carboplatin / 5-FU / pembrolizumab q. 21 days, day one cycle one 08/03/2018 (pembrolizumab added cycle two) evidence of progression after four cycles. Fentanyl transitioning from 125 mcg to 112 mcg q. 3 days; oxycodone 10 mg p.r.n., severe pain t.i.d. INTERVAL HISTORY Lex is here for followup and possible day 1 cycle five treatment. He reports continuing to have some pain. He held off renewing his rescue oxycodone. We discussed what we had previously discussed which was renewing his fentanyl at 112 but continuing his rescue oxycodone at 10 and synchronizing both prescriptions to an every 30-day cycle to simplify. Last week I learned Dr. Colon had received the CT images but had not yet had them available, in other words they were digitally transmitted but he had not been alerted to their presence and he had not looked at them yet. I have messages him today to see if he has looked at them yet but explained to Lex there is one focus of disease progression while two others are stable. I reviewed the images extensively with Dr. Rangel. I brought up the images of the area of progression, which is clearly marked for Lex and his to look at. We discussed my conversation with Dr. Colon as follows: If surgery is possible based on anatomic planes on current CTs, Dr. Colon would be willing to see Lex again to discuss the possibility of curative intent cure, though as previously explained to Lex this would be fairly disfiguring and radical surgery. If a curative intent surgery is not feasible, palliative chemotherapy would be his only treatment. He has had only modest response to immunotherapy based combination chemo immunotherapy and progression in one site. I would like to switch his therapy if palliation is our goal trying single agent cetuximab both for performance status reasons and efficacy. He is clearly not responding well to [place]. He may have a good response to cetuximab. Lex struggles with nutrition and weight loss, cisplatin is probably simply too toxic and not tolerable. We had a long conversation today detailing all the issues, including pain management, potential for surgery, potential for palliative treatment only, limited life expectancy if the latter, treatment options as described. I also promised him we will all work diligently to resolve this issue quickly with Dr. Colon. IMPRESSION: HPV negative recurrent squamous cell carcinoma of the oropharynx / oral tongue in a previously radiated and surgically treated field with progression in one of three foci of disease following four cycles of carboplatin / 5-FU / pembrolizumab. Chronic cancer and non cancer related pain. ECOG performance status 1 to 2. PLAN: 1. I renewed fentanyl today 100 mcg patch plus 12 mcg patch for combination, 112 mcg q. 3 days 30 day supply. 2. On October 29, I will renew 10 mg up to t.i.d. oxycodone as needed for severe pain 30-day supply for shortening and only to synchronize the next fentanyl renewal with oxycodone renewal. 3. Hold cycle five carboplatin / 5-FU / pembrolizumab. 4. I will contact Dr. Colon this week and discuss whether surgery is a possibility. If it is, we will have to arrange for Lex to get done to [place] right away. Otherwise, we will arrange for him to return to start single agent cetuximab. Time statement: 30 minutes [id number] with the patient, more than 50% involving counseling regarding all of the issues detailed above, answering the patient's questions to their apparent satisfaction. Electronically Signed by Deanna Yoder MD 10/27/2018 05:15 P DD: Deanna Yoder MD 10/26/2018 04:05 P DT: walter 10/27/2018 07:11 A CC: Van R. DO Filiberto Jimenez MD
[2018-11-02 09:42] VITALS: BP 134/87
[2018-11-02 09:45] LABS: HEMATOCRIT 30.3 % (42.0-52.0); LYMPH % 14.7 % (24.0-44.0); MEAN CORPUSCULAR HEMOGLOBIN 32.6 pg (27.0-33.0); MEAN CORPUSCULAR VOLUME 98.6 fl (80.0-96.0); NEUTROPHILS # 2.5 10^3/uL (1.8-7.7); RED BLOOD COUNT 3.07 10^6/uL (4.30-6.10); WHITE BLOOD COUNT 3.3 10^3/uL (4.0-10.0)
[2018-11-02 10:05] LABS: BLOOD UREA NITROGEN 16 MG/DL (6-20); CALCIUM LEVEL 10.2 MG/DL (8.5-10.2); CARBON DIOXIDE LEVEL 31 MEQ/L (23-31); CHLORIDE LEVEL 99 MMOL/L (98-107); GLOMERULAR FILTRATION RATE > 60.0 (>56); GLUCOSE, FASTING 175 MG/DL (70-105); POTASSIUM SERUM 3.9 MMOL/L (3.5-5.1); SODIUM LEVEL 138 MMOL/L (135-145); TOTAL PROTEIN 7.5 GM/DL (6.4-8.3)
--- NOTE | 2018-11-07 10:40 | MEDONC ---
MEDICAL ONCOLOGY FOLLOWUP / TREATMENT VISIT DATE OF SERVICE: 11/02/2018 DIAGNOSIS: 1. 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 Original diagnosis June 2018 with recurrence in a previously radiated field approximately 6 months after initial surgery and radiation. Status post four cycles of carboplatin/5-FU /pembrolizumab with evidence of progression in the posterior triangle. Here to begin second-line palliative treatment with single agent cetuximab. 2. 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 3. Cancer related pain involving left neck, superimposed on chronic low back pain, long time opioid dependence for low back pain. 4. Chronic non-cancer related low back pain on mcc opioid use. CURRENT THERAPY: Today will be day one cycle one weekly cetuximab given weekly on a 28-day cycle. PRIOR THERAPY: Partial left glossectomy 11/12/2017. Left modified radical neck dissection 12/05/2017 (see 07/13/2018 note for details). Adjuvant radiation 6600 cGy 01/15/2018 - 03/09/2018. 04/2018 recurrence involving hypoglottic/posterior triangle mass base of tongue mass in previously radiated field. carboplatin / 5-FU / pembrolizumab 08/03/2018 - 10/05/2018, four cycles (pembrolizumab added as of cycle two) with disease progression. INTERVAL HISTORY: Lex is here to start single agent cetuximab after Dr. Colon deemed his recurrent site too close to the spinal cord in the posterior triangle area to try for curative intent surgery. He was understandably very disappointed but would like to go forward with cetuximab. I reviewed risks, benefits, side effects including but not limited to risk of acneform rash, myelosuppression, diarrhea, fatigue, loss of appetite, infusion reaction. Plan will be weekly treatment 28 days cycle with restaging after two cycles, continuing if disease stable or improved. I answered all Lex's and his 's questions. He is ready to go. We talked over his pain meds as well. I renewed his 30-day supply of 10 mg oxycodone rescue up to three times daily and will keep him currently on a 112 mcg fentanyl patch dose. I have taken over his chronic pain in addition to cancer pain management from Dr. Jimenez given the complexity of Lex's situation. IMPRESSION: Refractory recurrent HPV negative oropharyngeal squamous cell carcinoma original diagnosis November 2017 status post left partial glossectomy, modified radical neck dissection, radiation and found to have posterior triangle base of tongue and left parotid lymph node recurrence June 2018, not responding to first-line palliative carboplatin / 5-FU / pembrolizumab. ECOG performance status 1-2. Chronic opioid dependence for chronic low back pain with superimposed cancer related pain. PLAN: 1. Begin weekly cetuximab today. 2. Return to clinic weekly for treatment. Each treatment day, CBC, CMP, mag each day one. 3. Office visit on day one each cycle. 4. Restaging after two cycles. 5. I will continue to renew Lex's opioids on a monthly basis. Monitoring need. Time statement: 20 minutes spent [id number] with the patient more than 50% involving counseling, obtaining written informed consent as detailed above. Electronically Signed by Deanna Yoder MD 11/09/2018 08:43 A DD: Deanna Yoder MD 11/06/2018 03:57 P DT: [email or web address] 11/07/2018 10:14 A CC: DO Filiberto Nunes MD
[2018-11-09 13:11] LABS: HEMATOCRIT 31.2 % (42.0-52.0); HEMOGLOBIN 10.4 g/dl (13.5-17.5); LYMPH % 16.1 % (24.0-44.0); MEAN CORPUSCULAR HEMOGLOBIN 33.2 pg (27.0-33.0); MEAN CORPUSCULAR HGB CONC 33.3 g/dl (32.0-36.5); MEAN CORPUSCULAR VOLUME 99.7 fl (80.0-96.0); NEUTROPHILS # 2.7 10^3/uL (1.8-7.7); NEUTROPHILS % 73.5 % (36.0-66.0); RED BLOOD COUNT 3.13 10^6/uL (4.30-6.10); WHITE BLOOD COUNT 3.7 10^3/uL (4.0-10.0)
[2018-11-09 13:12] VITALS: BP 119/83
[2018-11-17 13:41] LABS: HEMATOCRIT 35.7 % (42.0-52.0); HEMOGLOBIN 11.4 g/dl (13.5-17.5); LYMPH % 10.5 % (24.0-44.0); MEAN CORPUSCULAR HEMOGLOBIN 31.7 pg (27.0-33.0); MEAN CORPUSCULAR HGB CONC 31.9 g/dl (32.0-36.5); MEAN CORPUSCULAR VOLUME 99.2 fl (80.0-96.0); NEUTROPHILS # 4.3 10^3/uL (1.8-7.7); NEUTROPHILS % 81.7 % (36.0-66.0); RED BLOOD COUNT 3.6 10^6/uL (4.30-6.10); WHITE BLOOD COUNT 5.3 10^3/uL (4.0-10.0)
[2018-11-17 15:22] VITALS: BP 124/78
[2018-11-23 13:36] LABS: HEMATOCRIT 34.5 % (42.0-52.0); HEMOGLOBIN 11.3 g/dl (13.5-17.5); LYMPH % 16.2 % (24.0-44.0); MEAN CORPUSCULAR HEMOGLOBIN 32.9 pg (27.0-33.0); MEAN CORPUSCULAR HGB CONC 32.8 g/dl (32.0-36.5); MEAN CORPUSCULAR VOLUME 100.5 fl (80.0-96.0); NEUTROPHILS # 4.7 10^3/uL (1.8-7.7); NEUTROPHILS % 77.3 % (36.0-66.0); RED BLOOD COUNT 3.43 10^6/uL (4.30-6.10); WHITE BLOOD COUNT 6.1 10^3/uL (4.0-10.0)
--- NOTE | 2018-11-27 11:49 | MEDONCTEEN ---
MEDICAL ONCOLOGY TELEPHONE NOTE DATE OF SERVICE: 11/26/2018 Isabelle from the office of Lex's dentist called asking if there was a contraindication to tooth extraction or root canal at this point. He is on antibiotics for an infected tooth. Lex's WBC count has been normal for while, he is on cetuximab single agent, not typically strongly immunosuppressive, he is not on any bone modifying agent. He is status post left cervical neck radiation which could put him at some risk for developing osteonecrosis of the jaw, but is otherwise, from the medical oncology standpoint, not that high risk based on current treatment, for complications of tooth extractions. She thanked me for the information. Electronically Signed by Deanna Yoder MD 11/27/2018 07:38 P DD: Deanna Yoder MD 11/26/2018 02:55 P DT: [email or web address] 11/27/2018 11:42 A CC:
[2018-11-30 09:10] LABS: HEMATOCRIT 35.1 % (42.0-52.0); HEMOGLOBIN 11.1 g/dl (13.5-17.5); LYMPH % 5.3 % (24.0-44.0); MEAN CORPUSCULAR HEMOGLOBIN 32.1 pg (27.0-33.0); MEAN CORPUSCULAR HGB CONC 31.6 g/dl (32.0-36.5); MEAN CORPUSCULAR VOLUME 101.5 fl (80.0-96.0); NEUTROPHILS # 13.3 10^3/uL (1.8-7.7); NEUTROPHILS % 91.3 % (36.0-66.0); RED BLOOD COUNT 3.46 10^6/uL (4.30-6.10); WHITE BLOOD COUNT 14.6 10^3/uL (4.0-10.0)
[2018-11-30 09:18] VITALS: BP 105/71
[2018-11-30 09:41] LABS: BLOOD UREA NITROGEN 16 MG/DL (6-20); CALCIUM LEVEL 9.4 MG/DL (8.5-10.2); CARBON DIOXIDE LEVEL 30 MEQ/L (23-31); CHLORIDE LEVEL 99 MMOL/L (98-107); CREATININE FOR GFR 0.96 MG/DL (0.90-1.30); GLOMERULAR FILTRATION RATE > 60.0 (>56); GLUCOSE, FASTING 204 MG/DL (70-105); POTASSIUM SERUM 4.5 MMOL/L (3.5-5.1); SODIUM LEVEL 136 MMOL/L (135-145)
--- NOTE | 2018-12-01 09:59 | MEDONC ---
MEDICAL ONCOLOGY FOLLOWUP/TREATMENT VISIT: DATE OF SERVICE: 11/30/2018 DIAGNOSIS: 1. Recurrent HPV negative oral pharyngeal/oral tongue squamous cell carcinoma involving base of tongue mass, left parotid node, posterior triangle focus with recent progression now on second-line palliative treatment with single agent cetuximab. Original diagnosis June 2017. (See below). June 2018 recurrence in a previously radiated field approximately 6 months after initial surgery and radiation. Progression on carboplatin/5-FU/pembrolizumab after forth cycle. Now status post 4 weeks of cetuximab with mixed response on restaging. 2. 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 Cancer related pain involving left neck superimposed on chronic decades-long low back pain and long-time opioid dependence for same. 4. Chronic non-cancer related low back pain and longterm opioid use. CURRENT THERAPY: Cetuximab weekly on a 28-day cycle day 1 cycle one 11/02/2018; today will be day 1 cycle 2. CURRENT PAIN MANAGEMENT THERAPY: Fentanyl 112 mcg patch q.72 h. Oxycodone 10 mg q. 8 hours p.r.n. severe pain. PRIOR THERAPY: Please see 11/02/2018 note. INTERVAL HISTORY: Lex is here for treatment and followup. He has been dealing with two issues. One is he has a cetuximab related acneform rash for which we started doxycycline 100 mg b.i.d. approximately 10 days ago. The second issue is he has got a left tooth infection or pain. He saw Dr. Whiteside, his dentist in [place] approximately 10 days ago and has a followup scheduled tomorrow. Dr. Whiteside also started him on clindamycin. During the visit, there was some confusion on my part after taking a history from Lex and his , Jadyn, and I contacted Dr. Whiteside and we did straighten out some issues. The bottom line is, Lex complains of pain in the left mouth and today he has a white count which is new. This is not explained by his cetuximab treatment. There is no fever, but white count is 14.6 up from 6. During the visit we obtained a stat CT of the neck with contrast and I reviewed the findings and images with Dr. Chiang, the reading radiologist. The comparative film was from 10/09/2018, just at the beginning of cetuximab treatment, and therefore does not reflect its potential effect. It shows increase in size of base of left tongue mass versus 10/09/2018; mildly increased mass effect on oropharynx; decrease in left posterior triangle lymph node and left subcutaneous soft tissue mass; increase in size of left supraclavicular node compared to prior. All of these increases and decreases work on the order of a few millimeters. LIMITED EXAM: weight 63 kg (Persistent gradual weight loss since June when the patient was 78 kg), blood pressure 105/71, heart rate 105, respiratory 20, O2 sat 94%. Patient is a normal weight ill appearing young man, poor dentition. HEENT: Very poor dentition throughout. There is a semisolid appearing white extent of soft tissue versus secretions versus pus extending between the left posterior tongue and left alveolar ridge area. The patient did not tolerate oral pharynx exam very well. No obvious bleeding. No obvious swelling of the gums about the teeth. LABS: WBC 14.6, hemoglobin 11, hematocrit 35, platelets 353, neutrophilia 91%. Electrolytes: Normal glucose 204. Liver functions unremarkable. Magnesium 1.7, 0.1% below normal. albumin 4.0. IMPRESSION: 1. 58-year-old man with HPV negative squamous cell carcinoma of oropharynx involving base of tongue with recurrence in a previously radiated field involving three sites in the left neck and base of tongue on second-line palliative treatment with cetuximab with mixed response after 4 weeks (one cycle). 2. Suspected tooth infection involving the left gum. - I again reviewed the films with Dr. Chiang who reviewed, raising the question of whether an abscess or visible periodontal disease was present on CT and he said categorically, neither are present - I relayed this information to Dr. Whiteside. 3. At this point, because of the leukocytosis, imminent need for possible dental extraction versus root canal, presence of question of a tooth infection, will hold today's treatment. Lex can continue antibiotics as prescribed by dentistry an oral surgery and we will see him back in 1 week for possible restart of chemotherapy. His doxycycline can be held while he is on other antibiotics for dental reasons. TIME STATEMENT: 40 minutes [id number] with the patient more than 50% involved in counseling, coordination of care, reviewing images, extensive discussion of pain management and referring Lex and his Jadyn to our nurse navigator for questions between visits about timing of pain prescription and refills. Electronically Signed by Deanna Yoder MD 12/01/2018 05:20 P DD: Deanna Yoder MD 11/30/2018 05:52 P DT: juan j 12/01/2018 07:35 A CC: MD Javier Bull MD John Gellert, MD John R. Leuenberger, DO
[2018-12-07 09:06] VITALS: BP 122/84
[2018-12-07 09:19] LABS: HEMATOCRIT 36.9 % (42.0-52.0); HEMOGLOBIN 11.8 g/dl (13.5-17.5); LYMPH % 13.4 % (24.0-44.0); MEAN CORPUSCULAR HEMOGLOBIN 32.7 pg (27.0-33.0); MEAN CORPUSCULAR VOLUME 102.1 fl (80.0-96.0); NEUTROPHILS # 4.5 10^3/uL (1.8-7.7); NEUTROPHILS % 79.7 % (36.0-66.0); RED BLOOD COUNT 3.61 10^6/uL (4.30-6.10); WHITE BLOOD COUNT 5.6 10^3/uL (4.0-10.0)
[2018-12-07 09:36] LABS: ALBUMIN 3.9 GM/DL (3.5-5.2); BLOOD UREA NITROGEN 12 MG/DL (6-20); CALCIUM LEVEL 9.8 MG/DL (8.5-10.2); CARBON DIOXIDE LEVEL 30 MEQ/L (23-31); CHLORIDE LEVEL 98 MMOL/L (98-107); CREATININE FOR GFR 1.05 MG/DL (0.90-1.30); GLOMERULAR FILTRATION RATE > 60.0 (>56); GLUCOSE, FASTING 149 MG/DL (70-105); POTASSIUM SERUM 3.8 MMOL/L (3.5-5.1); SODIUM LEVEL 137 MMOL/L (135-145); TOTAL PROTEIN 7.3 GM/DL (6.4-8.3)
[2018-12-07 10:01] VITALS: BP 127/90
--- NOTE | 2018-12-08 11:49 | MEDONC ---
MEDICAL ONCOLOGY FOLLOWUP DATE OF SERVICE: 12/07/2018 DIAGNOSES: 1. 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 (Please see 11/30/2018 note for prior treatment details.) 2. 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 3. Cancer-related pain superimposed on chronic pain. 4. Chronic [id number] pain and long-term opioid use. CURRENT THERAPY: Cetuximab weekly on a 28-day schedule, day 1, cycle one 11/02/2018. Today will be day 1, cycle two (held for need for dental filling replacement). CURRENT PAIN MANAGEMENT: Fentanyl 112 mcg patch q. 72 hours. Oxycodone 10 mg q. 8 hours p.r.n. severe pain. PRIOR THERAPY: See 11/02/2018 note. Lex had a tooth filled last week rather than getting his day 1, cycle two cetuximab. Today, he complains of pain in the tongue. He is not sure if it is because of the dentist maneuvering his tongue at all, but it has been sore since he had the tooth filled. Of note, STAT neck and head CT done last week was negative for evidence of abscess or even periodontal disease and showed a mixed picture in terms of response. The base of tongue mass was slightly larger. The posterior triangle and carotid nodes slightly smaller. These all on the order of millimeters. I reviewed the images with Dr. Chiang. I explained this result to Lex and his . I suggested that he take another half tablet of the oxycodone for a total of 15 mg q. 8 hours to see if that helps his pain in the short term. If he immediately becomes reliant on more continuous pain medications, it suggests that his cancer is growing. That would prompt me to reorder CT to see if this cancer is growing right through current treatment. In discussing this, in the context of pain management, I clarified for Lex and his that the issue would be if he has a quickly progressing base of tongue mass despite second-line palliative treatment, treatment options are beginning to dwindle, and his prognosis becomes very grave. I asked him to begin thinking about his goals, terms of quality of life, and to begin thinking toward gaining an understanding of what I mean when I say his life expectancy could be on the order of months. Finally, very disturbingly, his airway could be compromised by an increasing base of tongue mass. A tracheostomy could be needed. There are many considerations that need to be thought about. As is the case in many of our visits, a great deal of the time spent today discussing the difference between pain medication for a sense of the previous pill wearing off versus real and new pain, pain for growing cancer, and what the implications would be of growing cancer. Lex wants to continue treatment; at this point, it is salvage. Cisplatin has not yet been deployed, and we could try this, but his performance status is so poor at this point, perhaps one to two, closer to two, he says he is recumbent a lot of the day, though not asleep. Hard to think about how well he could tolerate cisplatin, particularly if he developed severe nausea. I was explicit in my concern about over-medication, as well, describing the risk of aspiration and dying from an aspiration if over-somnolence from too much opioids. Instead of prescribing a higher dose of his current p.r.n.'s, I am asking him to use an additional half tablet or possibly two 10 mg tablets if the pain is very severe and to let me know if this is needed day after day or whether this pain should quell down, if it is caused just by manipulation of the tongue mass as opposed to growing cancer. LIMITED EXAM: Vital signs reviewed normal. The oropharynx, the tongue mass is large, left greater than right. There is no obvious bleeding or separation, but there is some slight distortion of the tongue. No gum bleeding. LABS: WBC 5.6, hemoglobin 11.8, hematocrit 37, platelets 370. Electrolytes normal. IMPRESSION: Recurrent HPV negative oropharyngeal carcinoma involving large base of tongue mass, left posterior triangle, and left carotid nodes with mixed response to second-line palliative chemotherapy with single-agent cetuximab after one cycle. Chronic pain with superimposed cancer pain. The patient now reports worsened pain after having his tongue manipulated during dental treatment last week. Notably, extent of periodontal disease on CT was minimal; a cavity filling was replaced, and CT showed no obvious periodontal disease or abscess but did confirm enlarging base of tongue mass on the order a few millimeters . ECOG performance status 2 by the patient's description today. PLAN: 1. Continue weekly cetuximab 2. Increase p.r.n. pain medications to 15, possibly 20 mg, q. 8 hours as needed of oxycodone and report within a few days if this extra analgesia need persists and does not decrease. If it does persist, this is a concern for growing base of tongue cancer, we re-image quickly; and if evidence of growth despite current treatment, consider recommending hospice care. Airway protection would be an immediate issue of concern in addition to pain control. TIME STATEMENT: 40 MINUTES face to face with the patient more than 50% involved in counseling regarding pain management, answering patient's questions, discussing goals of care, palliative chemo verus symptom control only, addressing issues of salvage treatment, if-then scenarios if base of tongue tumor progresses threatening airway, as discussed above. Electronically Signed by Deanna Yoder MD 12/08/2018 06:12 P DD: Deanna Yoder MD 12/07/2018 03:49 P DT: aml 12/08/2018 09:00 A CC: MD Javier Bull MD John Gellert, MD John R. Leuenberger, DO
[2018-12-14 10:00] VITALS: BP 128/82
[2018-12-14 10:17] LABS: HEMATOCRIT 35.6 % (42.0-52.0); HEMOGLOBIN 11.3 g/dl (13.5-17.5); MEAN CORPUSCULAR HEMOGLOBIN 32.7 pg (27.0-33.0); MEAN CORPUSCULAR HGB CONC 31.7 g/dl (32.0-36.5); MEAN CORPUSCULAR VOLUME 102.8 fl (80.0-96.0); NEUTROPHILS # 4.1 10^3/uL (1.8-7.7); NEUTROPHILS % 81.3 % (36.0-66.0); RED BLOOD COUNT 3.46 10^6/uL (4.30-6.10); WHITE BLOOD COUNT 5.1 10^3/uL (4.0-10.0)
[2018-12-14 10:27] LABS: ALBUMIN 3.9 GM/DL (3.5-5.2); BLOOD UREA NITROGEN 12 MG/DL (6-20); CARBON DIOXIDE LEVEL 31 MEQ/L (23-31); CHLORIDE LEVEL 98 MMOL/L (98-107); CREATININE FOR GFR 0.98 MG/DL (0.90-1.30); GLOMERULAR FILTRATION RATE > 60.0 (>56); GLUCOSE, FASTING 168 MG/DL (70-105); SODIUM LEVEL 135 MMOL/L (135-145); TOTAL PROTEIN 7.2 GM/DL (6.4-8.3)
--- NOTE | 2018-12-14 11:09 | ONC.PHACK ---
CHEMO ADMIN CHECKLIST Order Contains Pt ID: Name, Order on Chemo Order Form?: Yes Order Form Includes ALL: Correct Tx Day, Correct Date, Correct Cycle Number Pt ID on Order form Matches: Pt ID on PHA Label Med on Chemo OrderForm Matches: PHA Label, Med Used for Preparation [facility] Dec 14, 2018 11:09
[2018-12-22 09:10] VITALS: BP 114/76
[2018-12-22 09:35] LABS: HEMATOCRIT 35.2 % (42.0-52.0); HEMOGLOBIN 11.4 g/dl (13.5-17.5); LYMPH % 9.6 % (24.0-44.0); MEAN CORPUSCULAR HEMOGLOBIN 31.8 pg (27.0-33.0); MEAN CORPUSCULAR HGB CONC 32.4 g/dl (32.0-36.5); MEAN CORPUSCULAR VOLUME 98.3 fl (80.0-96.0); NEUTROPHILS # 6.5 10^3/uL (1.8-7.7); RED BLOOD COUNT 3.58 10^6/uL (4.30-6.10); WHITE BLOOD COUNT 7.6 10^3/uL (4.0-10.0)
--- NOTE | 2018-12-22 09:55 | ONC.PHACK ---
CHEMO ADMIN CHECKLIST Order Contains Pt ID: Name, Order on Chemo Order Form?: Yes Order Form Includes ALL: Correct Tx Day, Correct Date, Correct Cycle Number Pt ID on Order form Matches: Pt ID on PHA Label Med on Chemo OrderForm Matches: PHA Label, Med Used for Preparation [facility] Dec 22, 2018 09:55
[2018-12-28 09:16] VITALS: BP 119/81
[2018-12-28 09:27] LABS: HEMATOCRIT 34.8 % (42.0-52.0); HEMOGLOBIN 11.5 g/dl (13.5-17.5); LYMPH % 14.5 % (24.0-44.0); MEAN CORPUSCULAR HEMOGLOBIN 32.2 pg (27.0-33.0); MEAN CORPUSCULAR VOLUME 97.4 fl (80.0-96.0); NEUTROPHILS # 3.6 10^3/uL (1.8-7.7); NEUTROPHILS % 77.3 % (36.0-66.0); RED BLOOD COUNT 3.57 10^6/uL (4.30-6.10); WHITE BLOOD COUNT 4.7 10^3/uL (4.0-10.0)
--- NOTE | 2018-12-28 10:48 | ONC.PHACK ---
CHEMO ADMIN CHECKLIST Order Contains Pt ID: Name, Order on Chemo Order Form?: Yes Order Form Includes ALL: Correct Tx Day, Correct Date, Correct Cycle Number Pt ID on Order form Matches: Pt ID on PHA Label Med on Chemo OrderForm Matches: PHA Label, Med Used for Preparation [facility] Dec 28, 2018 10:48
--- NOTE | 2018-12-28 11:30 | MEDONC ---
MEDICAL ONCOLOGY FOLLOWUP/TREATMENT VISIT DATE OF SERVICE: 12/28/2018 DIAGNOSIS: 1. 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 (See 11/30/2018 for prior treatment details). 2. 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 3. Cancer-related pain superimposed on chronic noncancer pain. 4. Chronic noncancer-related pain with correction opioid use for same. CURRENT THERAPY: Cetuximab weekly on a 28-day schedule, day 1, cycle 1, 11/02/2018. Today will be day 22, cycles 2. Interval restaging 11/30/2018 with decrease two leonardo sites, increase in left tongue base mass on millimeters each. CURRENT PAIN MANAGEMENT: Fentanyl 112 mcg patch q.72 hours. Oxycodone 15 mg q. 8 hours p.r.n. severe pain, increased as of 12/22/2018 from 10 mg q.8 hours. Today, patient reports better symptom control. OTHER MEDICAL PROBLEMS: Cetuximab related rash. The patient self discontinued doxycycline. PRIOR THERAPY: See 11/02/2018 and 11/30/2018 note. INTERVAL HISTORY: Lex is here for day 22, cycle 2 treatment. He complains of his cetuximab rash. It turns out, he is not taking the doxycycline. He may have run out and not refilled the bottle. He does have a single refill. We talked about getting started back on that. I also prescribed clindamycin gel. I reviewed with him how to take these, how often and so forth. The rash will be kept at bay fairly successfully with consistent use of the doxycycline. REVIEW OF SYSTEMS: Lex has no new sites of pain, his pain is better relieved now with 15 mg oxycodone q.8 hours. He is eating food orally and using his PEG. No new shortness of breath. No new musculoskeletal pain, fevers or chills. Vital signs: Today including weight, stable and normal. LABS: WBC 4.7, hemoglobin 11.5, hematocrit 35, platelets 354, MCV 97. IMPRESSION: Refractory recurrent HPV negative head and neck cancer involving base of tongue mass with cervical neck lymph node involvement in previously radiated field on second-line treatment in the metastatic/recurrent setting with mixed response overall, but notably, increased analgesia requirements over the last few weeks. Chronic noncancer pain. Baseline high milligram and long-term opioid use. Cetuximab related rash, grade 2. PLAN: 1. Cycle 2, day 22 treatment today. 2. Resume doxycycline 100 mg b.i.d.; start clindamycin gel topically twice daily. 3. Continue current pain regimen. 4. Return to clinic 1 week day 1 cycle of 3, CBC, CMP; 2 weeks day 1 cycle 4, CBC, CMP, and magnesium. 5. Restaging neck and chest CT with contrast late in the week of January 06 for followup on the , which would be day 2, cycle 3 for clinical exam and review of images. Electronically Signed by Deanna Yoder MD 12/28/2018 05:05 P DD: Deanna Yoder MD 12/28/2018 10:25 A DT: raymond 12/28/2018 11:15 A CC: MD Van Adair MD John R. Leuenberger, DO
[2019-01-04 13:10] VITALS: BP 123/77
[2019-01-04 13:20] LABS: HEMATOCRIT 34.5 % (42.0-52.0); HEMOGLOBIN 11.2 g/dl (13.5-17.5); LYMPH % 10.4 % (24.0-44.0); MEAN CORPUSCULAR HEMOGLOBIN 31.3 pg (27.0-33.0); MEAN CORPUSCULAR HGB CONC 32.5 g/dl (32.0-36.5); MEAN CORPUSCULAR VOLUME 96.4 fl (80.0-96.0); NEUTROPHILS # 5.8 10^3/uL (1.8-7.7); NEUTROPHILS % 83.8 % (36.0-66.0); RED BLOOD COUNT 3.58 10^6/uL (4.30-6.10); WHITE BLOOD COUNT 6.9 10^3/uL (4.0-10.0)
[2019-01-04 13:40] LABS: ALBUMIN 3.9 GM/DL (3.5-5.2); BLOOD UREA NITROGEN 17 MG/DL (6-20); CARBON DIOXIDE LEVEL 31 MEQ/L (23-31); CHLORIDE LEVEL 98 MMOL/L (98-107); CREATININE FOR GFR 0.93 MG/DL (0.90-1.30); GLOMERULAR FILTRATION RATE > 60.0 (>56); GLUCOSE, FASTING 111 MG/DL (70-105); SODIUM LEVEL 135 MMOL/L (135-145); TOTAL PROTEIN 7.3 GM/DL (6.4-8.3)
--- NOTE | 2019-01-04 14:02 | ONC.PHACK ---
CHEMO ADMIN CHECKLIST Order Contains Pt ID: Name, Order on Chemo Order Form?: Yes Order Form Includes ALL: Correct Tx Day, Correct Date, Correct Cycle Number Pt ID on Order form Matches: Pt ID on PHA Label Med on Chemo OrderForm Matches: PHA Label, Med Used for Preparation [facility] Jan 04, 2019 14:02
[2019-01-11 08:30] LABS: HEMATOCRIT 36.6 % (42.0-52.0); HEMOGLOBIN 11.8 g/dl (13.5-17.5); LYMPH % 14.4 % (24.0-44.0); MEAN CORPUSCULAR HEMOGLOBIN 31.1 pg (27.0-33.0); MEAN CORPUSCULAR HGB CONC 32.2 g/dl (32.0-36.5); MEAN CORPUSCULAR VOLUME 96.2 fl (80.0-96.0); NEUTROPHILS # 3.4 10^3/uL (1.8-7.7); NEUTROPHILS % 78.1 % (36.0-66.0); RED BLOOD COUNT 3.8 10^6/uL (4.30-6.10); WHITE BLOOD COUNT 4.4 10^3/uL (4.0-10.0)
[2019-01-11 08:46] VITALS: BP 119/78
[2019-01-11 08:58] LABS: ALBUMIN 3.8 GM/DL (3.5-5.2); BLOOD UREA NITROGEN 14 MG/DL (6-20); CARBON DIOXIDE LEVEL 32 MEQ/L (23-31); CHLORIDE LEVEL 99 MMOL/L (98-107); CREATININE FOR GFR 0.95 MG/DL (0.90-1.30); GLOMERULAR FILTRATION RATE > 60.0 (>56); GLUCOSE, FASTING 168 MG/DL (70-105); SODIUM LEVEL 137 MMOL/L (135-145); TOTAL PROTEIN 7.1 GM/DL (6.4-8.3)
--- NOTE | 2019-01-11 14:33 | ONC.PHACK ---
CHEMO ADMIN CHECKLIST Order Contains Pt ID: Name, Order on Chemo Order Form?: Yes Order Form Includes ALL: Correct Tx Day, Correct Date, Correct Cycle Number Pt ID on Order form Matches: Pt ID on PHA Label Med on Chemo OrderForm Matches: PHA Label, Med Used for Preparation [facility] Jan 11, 2019 14:33
--- NOTE | 2019-01-18 09:12 | MEDONC ---
MEDICAL ONCOLOGY FOLLOW-UP/TREATMENT VISIT DATE OF SERVICE: 01/11/2019 DIAGNOSIS: 1. 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 Currently with mixed response, gradual progression on single agent cetuximab second line palliative treatment. See 11/30 prior treatment details. 2. 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 3. Cancer related pain superimposed on chronic non cancer pain treated for many years with opioids. 4. Chronic non cancer pain, opioid dependent, long-term CURRENT THERAPY: Cetuximab weekly on a 28-day schedule, day 1, cycle one 11/02/2018. Today will be day 8, cycle three. Restaging with mild progression on the order of millimeters at all sites in contrast to partial regression 11/30/2018. CURRENT PAIN MANAGEMENT: - Fentanyl 112 mcg every 72 hours - oxycodone 15 mg q. 8 hours p.r.n. severe pain. This was increased 12/22/2018 from 10 mg q. 8 hours. Today after reporting symptom control 12/28/2018, Lex reports lack of symptom control and needs an increase his p.r.n. dosing. Given mild to moderate progression in a confined space, this is reasonable. INTERIM HISTORY: Lex's recent scans 01/07/2019 confirms some disease progression: Left posterior tongue mass measuring 2.8 cm, previously 2.4 cm; left parotid mass measuring 2.4 cm previously 2.1 cm, diffuse infiltration along the neck subcutaneous soft tissues unchanged, left supraclavicular mass 3 x 2.7 previously 2.8 x 2. No new adenopathy sites. I spoke with Lex and today about overall clinical goals. He is on second-line palliative treatment with no meaningful response to initial carboplatin/5-FU/pembrolizumab. He has had a partial minimal response to single-agent rituximab now with again mixed response and a little more progression. His pain medication requirements are increasing though it is difficult with Lex due to snf opioid use and likely tolerance. He is currently on fentanyl patch 112 and 15 mg q. 8 hours, we can increase the frequency of this to q. 6 hours. I frankly recommended Lex carefully consider his quality of life goals. Should he have significant new progression and significant increased pain following another cycle or two of cetuximab, it will be time to pursue perhaps one more, salvage treatment versus hospice care. Today Lex says he wants to "fight it the best he can," but I outlined for him the potential downside of being on active treatment that is not effective dealing with pain, side effects at home alone, without the assistance of hospice for palliative care. I asked him and his to carefully consider his wishes for his quality of life and estimated currently he may have less than 6 months life expectancy, certainly probably less than 12 months. He listened as did Jadyn. Meanwhile, he would like to continue current therapy. This is not unreasonable. PLAN: 1. Day 8 cycle three cetuximab. 2. Increase oxycodone to 15 mg q.6 h from q. 8 hours p.r.n. for convenience, Lex is receiving 30 day supplies of pain medication . 3. Return to clinic 4 weeks, day 8 cycle four, CBC stat CMP, magnesium. Electronically Signed by Deanna Yoder MD 02/04/2019 06:10 P DD: Deanna Yoder MD 01/14/2019 04:35 P DT: [email or web address] 01/18/2019 08:59 A CC: Van Jimenez DO
[2019-01-18 12:00] VITALS: BP 118/75
[2019-01-18 12:10] LABS: HEMATOCRIT 35.4 % (42.0-52.0); HEMOGLOBIN 11.3 g/dl (13.5-17.5); MEAN CORPUSCULAR HEMOGLOBIN 30.5 pg (27.0-33.0); MEAN CORPUSCULAR HGB CONC 31.9 g/dl (32.0-36.5); MEAN CORPUSCULAR VOLUME 95.8 fl (80.0-96.0); NEUTROPHILS # 3.4 10^3/uL (1.8-7.7); RED BLOOD COUNT 3.7 10^6/uL (4.30-6.10); WHITE BLOOD COUNT 4.2 10^3/uL (4.0-10.0)
--- NOTE | 2019-01-18 13:06 | ONC.PHACK ---
CHEMO ADMIN CHECKLIST Order Contains Pt ID: Name, Order on Chemo Order Form?: Yes Order Form Includes ALL: Correct Tx Day, Correct Date, Correct Cycle Number Pt ID on Order form Matches: Pt ID on PHA Label Med on Chemo OrderForm Matches: PHA Label, Med Used for Preparation [facility] Jan 18, 2019 13:06
[2019-01-25 12:00] VITALS: BP 128/73
[2019-01-25 12:24] LABS: HEMATOCRIT 35.7 % (42.0-52.0); HEMOGLOBIN 11.4 g/dl (13.5-17.5); LYMPH % 13.7 % (24.0-44.0); MEAN CORPUSCULAR HEMOGLOBIN 30.5 pg (27.0-33.0); MEAN CORPUSCULAR HGB CONC 31.9 g/dl (32.0-36.5); MEAN CORPUSCULAR VOLUME 95.5 fl (80.0-96.0); NEUTROPHILS # 3.6 10^3/uL (1.8-7.7); NEUTROPHILS % 81.1 % (36.0-66.0); RED BLOOD COUNT 3.74 10^6/uL (4.30-6.10); WHITE BLOOD COUNT 4.5 10^3/uL (4.0-10.0)
--- NOTE | 2019-01-25 12:46 | ONC.PHACK ---
CHEMO ADMIN CHECKLIST Order Contains Pt ID: Name, Order on Chemo Order Form?: Yes Order Form Includes ALL: Correct Tx Day, Correct Date, Correct Cycle Number Pt ID on Order form Matches: Pt ID on PHA Label Med on Chemo OrderForm Matches: PHA Label, Med Used for Preparation [facility] Jan 25, 2019 12:46
--- NOTE | 2019-02-15 20:27 | ONC.PHACK ---
CHEMO ADMIN CHECKLIST Order Contains Pt ID: Name, Order on Chemo Order Form?: Yes Order Form Includes ALL: Correct Tx Day, Correct Date, Correct Cycle Number Pt ID on Order form Matches: Pt ID on PHA Label Med on Chemo OrderForm Matches: PHA Label, Med Used for Preparation [facility] Feb 15, 2019 20:27
[2019-02-16 12:57] VITALS: BP 109/76
[2019-02-16 12:58] LABS: BASO # 0.1 10^3/uL (0.0-0.2); EOS # 0.1 10^3/uL (0.0-0.50); EOS % 1.9 % (0.0-3.0); HEMATOCRIT 35.7 % (42.0-52.0); HEMOGLOBIN 11.6 g/dl (13.5-17.5); LYMPH # 0.3 10^3/uL (1.5-4.5); LYMPH % 6.7 % (24.0-44.0); MEAN CORPUSCULAR HEMOGLOBIN 28.9 pg (27.0-33.0); MEAN CORPUSCULAR HGB CONC 32.5 g/dl (32.0-36.5); MEAN CORPUSCULAR VOLUME 88.8 fl (80.0-96.0); MONO # 0.4 10^3/uL (0.0-0.8); MONO % 7.3 % (0.0-5.0); NEUTROPHILS % 82.9 % (36.0-66.0); PLATELET COUNT, AUTOMATED 308 10^3/uL (150-450); RED BLOOD COUNT 4.02 10^6/uL (4.30-6.10); WHITE BLOOD COUNT 4.8 10^3/uL (4.0-10.0)
[2019-02-16 13:22] LABS: ALBUMIN 3.1 GM/DL (3.2-5.2); ALT/SGPT 12 U/L (12-78); BILIRUBIN,TOTAL 0.3 MG/DL (0.2-1.0); BLOOD UREA NITROGEN 14 MG/DL (7-18); CALCIUM LEVEL 10.4 MG/DL (8.5-10.1); CARBON DIOXIDE LEVEL 32 MEQ/L (21-32); CHLORIDE LEVEL 98 MEQ/L (98-107); CREATININE FOR GFR 0.98 MG/DL (0.70-1.30); GLOMERULAR FILTRATION RATE > 60.0 (>56); GLUCOSE, FASTING 176 MG/DL (70-100); POTASSIUM SERUM 3.8 MEQ/L (3.5-5.1); SODIUM LEVEL 135 MEQ/L (136-145); TOTAL PROTEIN 7.6 GM/DL (6.4-8.2)
--- NOTE | 2019-02-18 08:45 | MEDONC ---
MEDICAL ONCOLOGY THROUGHOUT SCHEDULED TREATMENT VISIT DATE OF SERVICE: 02/16/2019 DIAGNOSES: 1. 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 Most recent restaging CT scans of the neck and chest 01/07/2019 showing a mixed response and possibly a little more progression. 2. 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 3. Cancer related pain, superimposed on chronic noncancer pain treated for many years with opioids. 4. Chronic noncancer pain, opioid dependent, long-term. CURRENT THERAPY: Cetuximab weekly on a 28-day schedule, day one, cycle one 11/02/2018. Today is day eight cycle four. Restaging with mild progression on the order of millimeters at all sites in contrast to partial regression 11/30/2018. CURRENT PAIN MANAGEMENT: Fentynal 112 mcg every 72 hours, oxycodone 15 mg most recently every 3 hours p.r.n. breakthrough pain per Dr. Balderas. INTERVAL HISTORY: Lex presents today for a scheduled followup visit. He reports a new left palpable query nodule vs lymph node left side of neck over the past 2 weeks with increasing pain despite increasing the frequency of his oxycodone for breakthrough pain. Once again, he is asking for an increase in his pain management medications. He describes this pain as stabbing. No other new complaints are offered. For nutrition, he is relying mostly on milkshakes and supplementing with Boost or Ensure. He is currently not using his feeding tube. At present, Lex indicates that he is not interested in hospice services at this time. He is aware however we need to do restaging scans to reassess for progressive disease and to look for source of the patient's increased pain level. REVIEW OF SYSTEMS: 12 system review was completed and currently negative for headache, visual disturbance, dyspnea, cough, fevers or chills, nausea or vomiting, diarrhea, constipation, new skeletal pain or extremity edema. PHYSICAL EXAMINATION: Weight is 61.8 kg, temperature 97.9, pulse 103, respirations 15, BP 109/76, O2 sat 97% at rest on room air. Unable to examine the oropharynx as the patient indicates he is unable to open his mouth wide enough to do a visual exam secondary to pain. Lex does have a palpable nodule, ? lymph node measuring approximately 1-1/2 cm left posterior cervical neck. He states this is new within the past 2 weeks. LABORATORY DATA: WBC 4.8, ANC 4.0, RBC 4.02, H/H 11.6, 35.7, platelets 308. Chemistries are unremarkable with exception of a sodium of 135, nonfasting glucose of 176, calcium of 10.4, albumin 3.1. IMPRESSION: Lex presents today for scheduled day eight cycle four of cetuximab reporting a new left posterior cervical neck nodule vs lymph node with increasing pain. This is concerning for progressive disease. Lex is also requesting that he have an increase in his pain medication doses. He also indicates that he is not ready to pursue hospice at this time. Lex and his however are agreeable to: 1. Holding cetuximab today. 2. A.s.a.p. restaging CT of the neck and chest with contrast within the next couple of days followed by an office visit with Dr. Yoder thereafter. 3. An urgent referral to palliative care for pain management. We will request that Lex will ideally be seen within the next 24 hours. Lex and his are in agreement with our plan. Electronically Signed by Carmen Dwyer NP 02/23/2019 07:33 A DD: Carmen Dwyer NP 02/16/2019 02:02 P DT: [email or web address] 02/18/2019 08:31 A CC: Van Jimenez,
[~2019-02-24] VITALS: Ht 165.1 cm; Wt 59.3 kg
[~2019-02-24 15:05] MED LIST changes: +ACETAMINOPHEN 325 MG/10.15 ML UDC PO ONE; +ACETAMINOPHEN 650 MG PO PO ONE; +CETUXIMAB IV ONE; -FENT50DI5 TD; +FLUOROURACIL IV ONE; -ISOVUE-370 76% 100ML VIAL (Q9967) As Ordered ONE; +KCL 10MEQ IN D5/0.45NS 1000ML 1,000 ML IV ONE; +LORazepam 2 MG/ML VIAL (J2060) IVP ONE; +METF-791 PO; -METF500T4 PO; -METH5TA PO; +NS 1,000 ML IV ONE; +PALONOSETRON 250 MCG IV IV ONE; +PEGFILGRASTIM 6 MG/0.6ML SYR (NEULASTA) (J2505 PER 6MG) SC ONE; +PEMBROLIZUMAB OVER 30 MINUTES IV ONE; +PILL CUTTER 1 EACH XX PRN; +POTASSIUM CHLORIDE INJ 10 MEQ in D5W/0.9% SODIUM CHLORIDE 1,000 ML IV ONE; +SODIUM CHLORIDE 0.9% INJ 10 ML SYR IV PRN; +[UNRECOGNIZED DRUG - OTHER] IV ONE; +[UNRECOGNIZED DRUG - OTHER] IV ONE; +[UNRECOGNIZED DRUG - REMARK] IV ONE; +dexameTHASONE 10 MG IV IV ONE; +dexameTHASONE 10 MG PO PO ONE; +diphenhydrAMINE 25 MG IV IV ONE; +diphenhydrAMINE INJ 50MG/ML VIAL (J1200) IV ONE
[2019-02-24 15:12] VITALS: BP 148/92
[2019-02-24] MEDS ORDERED: METH5TA PO (15:16)
[2019-02-24] MEDS ORDERED: FENT50DI5 TD (15:17)
--- NOTE | 2019-02-24 17:28 | MEDONC ---
MEDICAL ONCOLOGY FOLLOWUP DATE OF SERVICE: 02/24/2019 DIAGNOSES 1. 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 Restaging scans in January reveal near doubling of tumor burden between December and January. The patient on palliative care. As of today electing for Hospice care at my strong recommendation. 2. 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 High-risk features include PNI, BENITO, 07/13 nodes. 3. Cancer related pain requiring escalating opioid doses superimposed on chronic opioid dependent pain. INTERVAL HISTORY Lex saw Ashlyn Raya at palliative care, who graciously agreed to see him in the absence of available palliative care in [facility]. Unfortunately, Lex's new scans confirm what he acknowledges feeling subjectively which is disease progression. His tongue is now deviating. He says more difficulty closing his mouth due to pain and the scans are clear there is progression in the left posterior triangle and base of tongue. We looked at the images together. I spoke with Lex about Hospice care and he is willing to accept going on Hospice care in [facility]. I will request an a.s.a.p. referral but cautioned the actual switch over to Hospice care occurs at time of meeting with down and final determinations. There can be a day or two delay sometimes as all the ducks get in a row. He was understanding of this. He has [id number] who work for Hospice. I answered Lex and his 's questions to the best my ability. There chief concern would be whether a [id number] family member could be part of his Hospice team, when the hospice care would start and I responded I would request as soon as possible referral in home Hospice care. Meanwhile, his pain management is under Ashlyn Raya. I gave contact numbers to Lex and his to use should a day or two go by and have not received any word one way or the other about Hospice. He is in need but not in extremis today and the usual small delays are reasonable in this case. IMPRESSION Recurrent progressive, treatment refractory HPV negative oropharyngeal carcinoma status post surgery, radiation with progression through two lines of palliative treatment. Unfortunately, now with further progressive disease within 1 month year doubling of tumor bulk. PLAN A.s.a.p. Hospice referral to [facility]. Electronically Signed by Deanna Yoder MD 02/26/2019 05:17 P DD: Deanna Yoder MD 02/24/2019 04:11 P DT: [email or web address] 02/24/2019 05:20 P CC: BHUMIKA Garcia,
== END 2019-02-24 15:15 | disposition home or self-care (01) ==
LOC: M ONCM 15:05
PROVIDERS: ATTEND Internal Medicine Medical Oncology
DX: C01 Malignant neoplasm of base of tongue (principal); C02.1 Malignant neoplasm of border of tongue; C77.0 Secondary and unspecified malignant neoplasm of lymph nodes of head, face and neck
CPT/HCPCS: 36415; 36430; 36591; 80053; 83735; 84439; 84443; 85027; 85610; 85730; 86850; 86900; 86901; 86920; 88300; 96365; 96366; 96367; 96372; 96375; 96413; 96415; C8957; G0463; J1100; J1200; J1642; J2060; J2469; J2505; J9045; J9055; J9190; P9016